=== PATIENT | female | born 1935 | race Caucasian/White ===

== ENCOUNTER 2018-06-20 15:26 | Inpatient (IN) ==
[2018-06-20] MEDS ORDERED: Sod Chloride 0.9% Inj 1,000 ML IV.SIG SCH (16:15)
[2018-06-20] MEDS ORDERED: Morphine Inj 4 MG/ML Vial IV.PUSH ONE (16:15)
--- NOTE | 2018-06-20 16:18 | ED ---
HPI General Chief complaint: Fever Stated complaint: Fever/Blockage Complaint Time Seen by Provider: 06/20/18 16:00 History of Present Illness HPI narrative: This is an 83-year-old female with history of recurrent stage III bilateral ovarian cancer, recently started on gemcitabine, follows with Dr. Melany Alaniz, presents with her for evaluation. For the past 2 days she has had generalized abdominal pain, constipation, feeling weaker than usual , had some shortness of breath and fevers. She notes a slight cough with no sputum production. She denies dysuria or flank pain. She reports decreased appetite. Denies any chest pain, lower extremity edema, vomiting. Symptoms are moderate. She has no other complaints. Related Data Home Medications Medication Instructions Recorded Confirmed metoprolol tartrate mg PO DAILY 06/20/18 rosuvastatin [Crestor] 40 mg PO DAILY 06/20/18 06/20/18 verapamil mg PO DAILY 06/20/18 Allergies Allergy/AdvReac Type Severity Reaction Status Date / Time sulfamethoxazole Allergy Severe swollen Unverified 06/20/18 15:57 tongue trimethoprim Allergy Severe swollen Unverified 06/20/18 15:57 tongue technetium-99m Allergy Intermediate RASH ON Unverified 06/20/18 15:57 TONGUE Review of Systems ROS: all other systems reviewed are negative [facility] Medical History Medical History High cholesterol (Acute) Hypertension (Acute) Ovarian cancer (Acute) Social History Social History Substance History: No History of Abuse Second Hand Smoke Exposure: No Smoking Status: Never smoker How Often Do You Have a Drink Containing Alcohol: Never Recent Travel in [facility] [place] within the Last 8 Weeks: No Recent Out of Country Travel within the Last 8 Weeks: No Exam Narrative Exam Narrative: GENERAL: Well-developed well-nourished female no acute distress. She is noted to be febrile, oxygen saturation 86% on room air. SKIN: Warm and dry. HEAD: Atraumatic. Normocephalic. EYES: Pupils equal and round. No scleral icterus. No injection or drainage. ENT: No nasal bleeding or discharge. Mucous membranes pink and moist. NECK: Trachea midline. No JVD. CARDIOVASCULAR: Regular rate and rhythm. No murmur appreciated. RESPIRATORY: No accessory muscle use. Crackles noted at the bases. Breath sounds equal bilaterally. GASTROINTESTINAL: Abdomen soft, generalized tenderness to palpation without guarding. MUSCULOSKELETAL: No obvious deformities. No clubbing. No cyanosis. No edema. NEUROLOGICAL: Awake and alert. No obvious cranial nerve deficits. Motor grossly within normal limits. Normal speech. PSYCHIATRIC: Appropriate mood and affect; insight and judgment normal. Course Initial Documented Vital Signs Temperature 101 F H 06/20/18 15:55 Pulse Rate 126 H 06/20/18 15:55 Respiratory Rate 22 06/20/18 15:55 Blood Pressure 172/95 H 06/20/18 15:55 Pulse Oximetry 86 L 06/20/18 15:55 Last Documented Vital Signs Temperature 98.3 F 06/20/18 19:43 Pulse Rate 82 06/20/18 19:43 Respiratory Rate 20 06/20/18 19:43 Blood Pressure 138/60 06/20/18 19:43 Pulse Oximetry 94 L 06/20/18 19:49 Medical Decision Making KENN Attestation KENN supervised visit: Yes Attestation: I, Dr. Ramirez, have reviewed the advance practice practitioner's documentation and am in agreement, met with the patient face to face, made the diagnosis, and the medical decision making was done by me. *My assessment and Findings: Patient seen and examined by me in addition to Balaji Mohamud PA-C, 83-year-old female history of ovarian cancer on chemotherapy with Dr. Alaniz presents emergency department with fever tachycardia and constipation is her main symptoms. Septic workup is ensued, patient is significant infiltrate of the right chest. No retractions or use of accessory muscles. And she has had some hypoxia as well. Differential diagnosis does include a lung infarct and a CT PE protocol has been ordered. CT abdomen is well looking for obstruction. Patient has broad-spectrum antibiotics ordered and will obligate admission to the hospital. On my examination patient is mildly tachycardic, she is not concluding a fluid bolus and she is tachypneic. She does appear ill. I have updated the family with the plan at this time and they are agreeable. Patient also had been having some abdominal cramping on and off, she is already received morphine 4 mg and Zofran 4 mg. She is feeling a little better. MDM Narrative Medical decision making narrative: The patient was placed on ECG monitoring pulse oximetry. She was placed on nasal cannula. She was given IV fluids, analgesics. Lab work, chest x-ray, CT pulmonary angiogram, CT abdomen and pelvis obtained. Lab work is been reviewed. She is not neutropenic. CT pulmonary angiogram reveals extensive metastatic disease to the lungs, liver, mediastinum, huge right pleural effusion and right perihilar consolidation and/or compressive collapse. The patient was started on vancomycin, Zosyn and azithromycin for healthcare associated pneumonia. CT abdomen and pelvis reveals evidence of metastatic disease within the serosal margin of the liver, hepatic/sub- diaphragmatic abscess would also be in the differential. Subcentimeter lucencies in the bony pelvis, metastatic deposits in the pelvic region as well. 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 Alaniz. At this point in time the plan is to admit the patient for sepsis, pneumonia, pleural effusion Medical Screen Exam Complete: Yes Emergency Medical Condition: Yes Differential Diagnosis Differential Diagnosis: Sepsis, pneumonia, neutropenic fever, pulmonary embolism , pleural effusion, obstruction Lab Data Result diagrams: 06/20/18 16:29 06/20/18 16:29 Lab Results 06/20/18 06/20/18 06/20/18 Range/Units 16:29 16:29 16:29 WBC 7.1 (4.0-11.0) th/mm3 RBC 3.90 L (4.00-5.30) mil/mm3 Hgb 12.2 (11.6-15.3) gm/dL Hct 36.7 (35.0-46.0) % MCV 93.9 (80.0-100.0) fL MCH 31.3 (27.0-34.0) pg MCHC 33.3 (32.0-36.0) % RDW 13.1 (11.6-17.2) % Plt Count 213 (150-450) th/mm3 MPV 7.7 (7.0-11.0) fL Neut % (Auto) 93.5 H (16.0-70.0) % Lymph % (Auto) 5.1 L (9.0-44.0) % Travis % (Auto) 1.1 (0.0-8.0) % Eos % (Auto) 0.1 (0.0-4.0) % Baso % (Auto) 0.2 (0.0-2.0) % Neut # (Auto) 6.7 (1.8-7.7) th/mm3 Lymph # (Auto) 0.4 L (1.0-4.8) th/mm3 Travis # (Auto) 0.1 (0.0-0.9) th/mm3 Eos # (Auto) 0.0 (0.0-0.4) th/mm3 Baso # (Auto) 0.0 (0.0-0.2) th/mm3 WBC Differential . Differential Comment Auto diff final PT 10.4 (9.8-11.6) sec INR 1.0 Ratio APTT 25.9 (23.4-31.7) sec Sodium (136-145) meq/L Potassium (3.5-5.1) meq/L Chloride (98-107) meq/L Carbon Dioxide (21.0-32.0) meq/L Anion Gap (5-15) meq/L BUN (7-18) mg/dL Creatinine (0.50-1.00) mg/dL Estimated GFR (>89) mL/min POC Glucose (68-110) mg/dl Random Glucose (74-106) mg/dL Lactic Acid (0.4-2.0) mmol/L Calcium (8.5-10.1) mg/dL Magnesium (1.5-2.5) mg/dL Total Bilirubin (0.2-1.0) mg/dL AST (15-37) U/L ALT (10-53) U/L Alkaline Phosphatase (45-117) U/L Total Creatine Kinase Cancelled Troponin I Cancelled Total Protein (6.4-8.2) g/dL Albumin (3.4-5.0) g/dL Lipase Cancelled 06/20/18 06/20/18 06/20/18 Range/Units 16:29 16:31 16:36 WBC (4.0-11.0) th/mm3 RBC (4.00-5.30) mil/mm3 Hgb (11.6-15.3) gm/dL Hct (35.0-46.0) % MCV (80.0-100.0) fL MCH (27.0-34.0) pg MCHC (32.0-36.0) % RDW (11.6-17.2) % Plt Count (150-450) th/mm3 MPV (7.0-11.0) fL Neut % (Auto) (16.0-70.0) % Lymph % (Auto) (9.0-44.0) % Travis % (Auto) (0.0-8.0) % Eos % (Auto) (0.0-4.0) % Baso % (Auto) (0.0-2.0) % Neut # (Auto) (1.8-7.7) th/mm3 Lymph # (Auto) (1.0-4.8) th/mm3 Travis # (Auto) (0.0-0.9) th/mm3 Eos # (Auto) (0.0-0.4) th/mm3 Baso # (Auto) (0.0-0.2) th/mm3 WBC Differential Differential Comment PT (9.8-11.6) sec INR Ratio APTT (23.4-31.7) sec Sodium 138 (136-145) meq/L Potassium 4.2 (3.5-5.1) meq/L Chloride 101 (98-107) meq/L Carbon Dioxide 27.4 (21.0-32.0) meq/L Anion Gap 10 (5-15) meq/L BUN 16 (7-18) mg/dL Creatinine 0.79 (0.50-1.00) mg/dL Estimated GFR 70 L (>89) mL/min POC Glucose 147 H (68-110) mg/dl Random Glucose 130 H (74-106) mg/dL Lactic Acid 1.1 (0.4-2.0) mmol/L Calcium 8.5 (8.5-10.1) mg/dL Magnesium 1.9 (1.5-2.5) mg/dL Total Bilirubin 0.7 (0.2-1.0) mg/dL AST 49 H (15-37) U/L ALT 38 (10-53) U/L Alkaline Phosphatase 54 (45-117) U/L Total Creatine Kinase 36 Troponin I Less than 0.02 L Total Protein 7.5 (6.4-8.2) g/dL Albumin 3.5 (3.4-5.0) g/dL Lipase 164 Imaging Data Radiologist's impression: Abdomen/Pelvis CT 06/20/18 16:12 CONCLUSION: 1. Evidence of metastatic disease within and along the serosal margin of the liver as described. A hepatic/subdiaphragmatic abscess would also be in the differential. 2. Metastatic retroperitoneal and gonzalo hepatis lymphadenopathy. 3. Soft tissue metastatic deposits within the mesentery of the left lower quadrant and the central pelvic cavity. 4. Subcentimeter lucencies of the bony pelvis, probably metastatic. Chest CTA 06/20/18 16:12 CONCLUSION: 1. Possible PE 2. Extensive metastatic disease to the lungs not present previously 3. Metastatic adenopathy within the mediastinum in addition to metastatic implant and/or adenopathy adjacent to right hepatic lobe. 4. Metastatic disease within the liver. 5. Huge right pleural effusion and right perihilar consolidation and/or compressive collapse. Chest X-Ray 06/20/18 16:13 CONCLUSION: Lndl-aj-[id number] generalized interstitial vascular congestion and cardiomegaly Right pleural effusion with underlying airspace disease Qerzuh-g-Uqhp catheter noted in place. Discharge Plan Discharge Disposition Patient Disposition: 30 Still Patient Discharge Condition Condition: Stable Discharge Details Diagnosis: HCAP (healthcare-associated pneumonia), Sepsis, Pleural effusion Physicians Team ED Provider: Ranjit Ramirez ED Midlevel Provider: Balaji Mohamud Primary Care Provider: No Carpio Rxs /Orders / Referrals /Forms Prescriptions: No Action verapamil 40 mg Tablet PO DAILY RF: 0 rosuvastatin [Crestor] 40 mg Tablet 40 mg PO DAILY RF: 0 metoprolol tartrate 25 mg Tablet PO DAILY RF: 0 Status ED Status: With Doctor
[2018-06-20 16:52] LABS: Baso % (Auto) 0.2 % (0.0-2.0); Eos % (Auto) 0.1 % (0.0-4.0); Hematocrit 36.7 % (35.0-46.0); Hemoglobin 12.2 gm/dL (11.6-15.3); Lymph # (Auto) 0.4 th/mm3 (1.0-4.8); Lymph % (Auto) 5.1 % (9.0-44.0); Mean Corpuscular HGB Conc 33.3 % (32.0-36.0); Mean Corpuscular Hemoglobin 31.3 pg (27.0-34.0); Mean Corpuscular Volume 93.9 fL (80.0-100.0); Mean Platelet Volume 7.7 fL (7.0-11.0); Mono # (Auto) 0.1 th/mm3 (0.0-0.9); Mono % (Auto) 1.1 % (0.0-8.0); Neut # (Auto) 6.7 th/mm3 (1.8-7.7); Neut % (Auto) 93.5 % (16.0-70.0); Platelet Count 213 th/mm3 (150-450); Red Cell Distribution Width 13.1 % (11.6-17.2); White Blood Count 7.1 th/mm3 (4.0-11.0)
[2018-06-20 16:59] LABS: Activated Partial Thrombo Time 25.9 sec (23.4-31.7); Prothrombin Time 10.4 sec (9.8-11.6)
--- NOTE | 2018-06-20 16:59 | XR ---
EXAM DATE: 06/20/2018 4:55 PM EST AGE/SEX: 83 years / Female INDICATIONS: Fever and shortness of breath. CLINICAL DATA: This is the patient's initial encounter. Patient reports that signs and symptoms have been present for 1 day and indicates a pain score of 2/10. MEDICAL/SURGICAL HISTORY: Carcinoma, ovarian. Dyslipidemia. HTN. CVA. CAD. Diverticulitis and d iverticulosis. . Infusaport. COMPARISON: [facility], CHEST SINGLE AP, 01/13/2016. . FINDINGS: Diffuse interstitial vascular congestion has developed. There is a small to moderate right pleural ef fusion with underlying airspace disease. Heart is mildly enlarged. Wzixqp-s-Gezx catheter is noted in place. CONCLUSION: Fgex-ol-sffjrxxo generalized interstitial vascular congestion and cardiomegaly Right pleural effusion with underlying airspace disease Crgwez-t-Jiax catheter noted in place. Electronically signed by: Jimbo Madera MD 06/20/2018 4:58 PM EST
[2018-06-20] MEDS ORDERED: Piperacil/Tazo 4.5 GM Premix 4.5 GM/100 ML BAG IV.SIG STA (17:00)
[2018-06-20] MEDS ORDERED: Azithromycin Inj 500 MG in Sodium Chlor 0.9% Inj 250 ML IV.SIG STA (17:00)
[2018-06-20] MEDS ORDERED: Vancomycin Inj 1,000 MG in Sodium Chlor 0.9% Inj 250 ML IV.SIG ONE (17:00)
[2018-06-20] MEDS ORDERED: Acetaminophen 325 MG Tablet PO ONE (17:03)
[2018-06-20 17:13] LABS: Alanine Aminotransferase 38 U/L (10-53); Albumin 3.5 g/dL (3.4-5.0); Anion Gap 10 meq/L (5-15); Aspartate Aminotransferase 49 U/L (15-37); Blood Urea Nitrogen 16 mg/dL (7-18); Calcium 8.5 mg/dL (8.5-10.1); Carbon Dioxide 27.4 meq/L (21.0-32.0); Chloride 101 meq/L (98-107); Glomerular Filtration Rate 70 mL/min (>89); Glucose,Random 130 mg/dL (74-106); Lipase 164 U/L (73-393); Magnesium 1.9 mg/dL (1.5-2.5); Potassium 4.2 meq/L (3.5-5.1); Sodium 138 meq/L (136-145)
[2018-06-20 17:17] LABS: Alkaline Phosphatase 54 U/L (45-117); Total Protein 7.5 g/dL (6.4-8.2)
[2018-06-20 17:19] LABS: Creatine Kinase 36 U/L (26-192)
--- NOTE | 2018-06-20 19:06 | CT ---
EXAM DATE: 06/20/2018 6:43 PM EST AGE/SEX: 83 years / Female INDICATIONS: Abdominal pain and constipation X 3 days. CLINICAL DATA: This is the patient's initial encounter. Patient reports that signs and symptoms have been present for 3 days and indicates a pain score of 8/10. MEDICAL/SURGICAL HISTORY: Hypertension. Carcinoma, ovarian. None. ORAL CONTRAST: No oral contrast ingested. RADIATION DOSE: 8.91 CTDI (mGy) COMPARISON: [facility], CT ABDOMEN AND PELVIS W/ CONTRAST, 04/17/2016. . TECHNIQUE: Multiple contiguous axial images were obtained through the abdomen and pelvis following b olus infusion of 74ML ml Omnipaque 350 (iohexol) nonionic water-soluble contrast as a cumulative do se for multiple exams. No oral contrast ingested. Using automated exposure control and adjustment of the mA and/or kV according to patient size, radiation dose was kept as low as reasonably achievable to obtain optimal diagnostic quality images. DICOM format image data is available electronically for review and comparison. FINDINGS: Multiloculated indurated appearing low-density lesions seen of the dome of the liver, measuring appro ximately 5.8 x 6.9 x 3.4 cm in size. There is fluid in the adjacent subdiaphragmatic space. Slightly more anteriorly is a subdiaphragmatic mass that measures approximately 4 cm in size and actually appe ars to protrude through the diaphragm into the adjacent pericardial fat. A similar mass measuring anjali roximately 1.6 x 3.6 x 5.7 cm is seen along the medial margin of the right hepatic lobe and abuts the adjacent right kidney. There is a 1.4 cm low-density lesion in the anterior segment of the right hep atic lobe on series 304 image 34 which is new. In the left hepatic lobe is a 2.3 cm stable, benign cy st. There is a 4 cm soft tissue mass, probably adilene conglomerate, in the gonzalo hepatis. A left aortocaval lymph node conglomerate measuring approximately 2.8 x 3.3 x 9.1 cm in size is prese nt. There are also some aortocaval lymph nodes that measure up to 1.4 cm in size. There is a soft tissue mass in the central pelvic cavity that measures 2.6 x 4.2 x 3.3 cm. It abuts t he sigmoid colon but does not clearly arise from it. A similar mesenteric mass is seen in the anterio r left lower quadrant on series 304 image 46 measuring 2.5 cm. There is severe diverticulosis of the sigmoid colon but no acute diverticulitis demonstrated. Several scattered vague lucencies are seen of the bony pelvis, for example 9 mm of the right iliac sonal ne and 9 mm of the left super acetabular region. No fracture. Abdominal aorta is atherosclerotic. No aneurysm. CONCLUSION: 1. Evidence of metastatic disease within and along the serosal margin of the liver as described. A h epatic/subdiaphragmatic abscess would also be in the differential. 2. Metastatic retroperitoneal and gonzalo hepatis lymphadenopathy. 3. Soft tissue metastatic deposits within the mesentery of the left lower quadrant and the central p elvic cavity. 4. Subcentimeter lucencies of the bony pelvis, probably metastatic. Electronically signed by: Wilfredo Velez MD 06/20/2018 7:05 PM EST
--- NOTE | 2018-06-20 19:11 | CT ---
EXAM DATE: 06/20/2018 6:43 PM EST AGE/SEX: 83 years / Female INDICATIONS: Shortness of breath; rule out pulmonary embolus. CLINICAL DATA: This is the patient's initial encounter. Patient reports that signs and symptoms have been present for 1 day and indicates a pain score of 8/10. MEDICAL/SURGICAL HISTORY: Hypertension. Carcinoma, ovarian. Chemotherapy None. RADIATION DOSE: 6.49 CTDI (mGy) COMPARISON: [facility], CT CHEST W/ CONTRAST, 04/17/2016. . TECHNIQUE: Volumetric scanning was performed using a multi-row detector CT scanner during bolus infu sawyer of 74 ml Omnipaque 350 (iohexol) nonionic water-soluble contrast as a cumulative dose for multi ple exams. The data was post processed with a variety of visualization algorithms including full volu me maximum intensity projection and sliding thin slab reformation. Using automated exposure control and adjustment of the mA and/or kV according to patient size, radiation dose was kept as low as reaso nably achievable to obtain optimal diagnostic quality images. DICOM format image data is available e lectronically for review and comparison. FINDINGS: There is a large right pleural effusion with right lung base consolidation and/or compressive collaps e. Multiple lung nodules are present to numerous to count the characteristic of metastatic disease th e largest measures almost 9 mm in left lower lobe. There is mass effect on right middle lobe and righ t lower lobe bronchi. There are small lymph nodes within the mediastinum and bilateral aleihsa the large st one measures 2.5 cm in size in right paratracheal area and there is involvement of the AP window p retracheal location as well consistent with metastatic disease not present previously. There is a sub cutaneous nodule near the sternum measures 8 mm in size could be a sebaceous cyst, however not presen t previously and the possibility of metastatic disease is not excluded. Supraclavicular adenopathy i s present the largest one measures 3.3 cm in size characteristic of metastatic disease. Tiny pericard ial effusion is seen probably of no clinical significance. There are low attenuating masses within t he liver suspicious for metastatic disease the largest one measures almost 4.1 cm in size in right he patic lobe. Additionally there are malignant masses or adenopathy indenting the anterior portion of t he liver the largest one measures almost 3.8 cm in size. There is no evidence of PE for technique. CONCLUSION: 1. Possible PE 2. Extensive metastatic disease to the lungs not present previously 3. Metastatic adenopathy within the mediastinum in addition to metastatic implant and/or adenopathy adjacent to right hepatic lobe. 4. Metastatic disease within the liver. 5. Huge right pleural effusion and right perihilar consolidation and/or compressive collapse. Electronically signed by: Norma Trevizo MD 06/20/2018 7:10 PM EST
[2018-06-20] MEDS ORDERED: Vancomycin Consult Pharmacy OTHER PRN (19:53)
[2018-06-20] MEDS ORDERED: Bisacodyl 10 MG Supp RECTAL PRN (19:59)
[2018-06-20] MEDS ORDERED: Acetaminophen 325 MG Tablet PO PRN (19:59)
--- NOTE | 2018-06-20 20:02 | P.HPIM ---
History of Present Illness Primary Care Physician: No Carpio MD History of Present Illness: This is an 83-year-old female with a PMH of HTN, Hyperlipidemia and Stage III Ovarian Ca who was brought to the ER for c/o SOB and abdominal pain. States symptoms have been ongoing for several weeks, however progressively worse since today. Follows w/ Dr. Alaniz, recently started on Gemcitabine. Denies fever or chest pain. +non-productive cough. On arrival, BP 172/95, HR 126, O2 sat 86 % on RA, Temp 101. CBC unremarkable. INR 1.0. Chemistry essentially unremarkable. Troponin negative. UA negative for UTI. CT Abdomen/Pelvis evidence of metastatic disease along the serosal margin of liver, hepatic/ subdiaphragmatic abscess would also be in the differential, soft tissue metastatic deposits in the mesentery of left lower quadrant and central pelvic cavity, subcentimeter lucencies bony pelvis, probably metastatic. CTA Chest no PE, extensive metastatic disease to the lungs, metastatic adenopathy within the mediastinum, metastatic disease to the liver, huge right pleural effusion and right perihilar consolidation and/or compressive collapse. Dr. Alaniz consulted by ER physician. S/p Vanc/Juan Manuelo/Dale in ER. - Diagnosis (1) SIRS (systemic inflammatory response syndrome) (2) Ovarian cancer (3) PNA (pneumonia) (4) Intractable pain (5) Pleural effusion Review of Systems PAST FAMILY HISTORY: Reviewed. No h/o DM or CAD All other systems reviewed negative except as stated in HPI PMFSH - History History Provided By: Patient - Medical History Medical History: Medical History (Last Updated 06/20/18 @ 16:15 by Sheryl Lopez) High cholesterol Hypertension Ovarian cancer - Tobacco History Second Hand Smoke Exposure: No Smoking Status: Never smoker - Alcohol History How Often Do You Have a Drink Containing Alcohol: Never - Substance Use History Substance History: No History of Abuse - Travel History Recent Travel in the [place] Within the Last 8 Weeks: No Recent Travel Out of the Country Within the Last 8 Weeks: No - Immunization History Tetanus Immunization: Unsure Medications and Allergies Active Medications: Active Medications Acetaminophen (Tylenol) 650 mg PO Q4H PRN PRN Reason: Temp > 100.4 Al Hydroxide/Mg Hydroxide (Milk Of Magnesia Liq) 30 ml PO Q12H PRN PRN Reason: Mild Constipation Albuterol (Duoneb Neb (Prn)) 1 ampul NEB Q4HR NEB PRN PRN Reason: SOB/WHEEZING Bisacodyl (Dulcolax Supp) 10 mg RECTAL DAILY PRN PRN Reason: SEVERE CONSITIPATION Enoxaparin Sodium (Lovenox Inj) 40 mg SQ Q24H CHAD Azithromycin 500 mg/ Sodium (Chloride) 250 mls @ 250 mls/hr IV.SIG Q24H CHAD Sodium Chloride (Ns Inj) 1,000 mls @ 100 mls/hr IV.CONT .Q10H CHAD Piperacillin/Tazobactam/Dextrose (Zosyn 4.5 Gm Premix) 4.5 gm in 100 mls @ 200 mls/hr IV.SIG Q6H CHAD Lactulose (Lactulose Liq) 30 ml PO DAILY PRN PRN Reason: SEVERE CONSITIPATION Ondansetron HCl (Zofran Inj) 4 mg IV.PUSH Q6H PRN PRN Reason: NAUSEA OR VOMITING Pharmacy Profile Note (Vancomycin Consult Pharmacy) 1 each OTHER UNSCH PRN PRN Reason: Pharmacy to dose Senna/Docusate Sodium (Susan-Colace) 1 tab PO BID CHAD Sennosides (Senokot) 17.2 mg PO Q12H PRN PRN Reason: Moderate Constipation Allergies Allergy/AdvReac Type Severity Reaction Status Date / Time sulfamethoxazole Allergy Severe swollen Verified 06/20/18 23:06 tongue trimethoprim Allergy Severe swollen Verified 06/20/18 23:06 tongue technetium-99m Allergy Intermediate RASH ON Verified 06/20/18 23:06 TONGUE Home Medications Medication Instructions Recorded Confirmed Type metoprolol tartrate mg PO DAILY 06/20/18 History rosuvastatin [Crestor] 40 mg PO DAILY 06/20/18 06/20/18 History verapamil mg PO DAILY 06/20/18 History Exam Vital signs: Vital Signs 06/20/18 15:55 06/20/18 16:08 06/20/18 19:43 Temperature 101 F H 98.3 F Pulse Rate 126 H 82 Respiratory Rate 22 18 20 Blood Pressure 172/95 H 138/60 Pulse Oximetry 86 L 87 L 97 06/20/18 19:49 Temperature Pulse Rate Respiratory Rate Blood Pressure Pulse Oximetry 94 L Intake & Output 06/20/18 06/20/18 06/21/18 06:59 18:59 06:59 Intake Total 1000 / 1000 Balance 1000 / 1000 Weight 58.967 kg Intake: IV 1000 / 1000 NS Inj 1,000 ML @ 1000 mls/hr 1000 / 1000 IV.SIG BOLUS CHAD Rx#:[id number] Narrative: PE: GENERAL: Elderly white female in no acute distress, appears weak/tired. Family at bedside. SKIN: Focused skin assessment warm and dry. HEENT: PERRLA, EOMI. No scleral icterus or conjunctival pallor. No lid lag or facial droop. CARDIOVASCULAR: Regular rate and rhythm. No obvious murmurs to auscultation. No chest tenderness to palpation. RESPIRATORY: No obvious rhonchi or wheezing. +crackles at bases bilaterally. Decreased breath sounds at bases. GASTROINTESTINAL: Abdomen soft, non-tender, nondistended. BS normal. MUSCULOSKELETAL: Extremities without clubbing, cyanosis, or edema. No obvious deformities. NEUROLOGICAL: Awake, alert and oriented x4. No focal neurologic deficits. Moving both upper and lower extremities spontaneously. PSYCHIATRIC: Appropriate mood and affect. Insight and judgment normal. Results - Labs CBC & Chem 7: 06/20/18 16:29 06/20/18 16:29 Labs: Short CBC 06/20/18 Range/Units 16:29 WBC 7.1 (4.0-11.0) th/mm3 Hgb 12.2 (11.6-15.3) gm/dL Hct 36.7 (35.0-46.0) % Plt Count 213 (150-450) th/mm3 BMP 06/20/18 16:29 Sodium 138 Potassium 4.2 Chloride 101 Carbon Dioxide 27.4 BUN 16 Creatinine 0.79 Calcium 8.5 Cardiac Enzymes 06/20/18 06/20/18 Range/Units 16:29 16:29 Total Creatine Kinase Cancelled 36 Troponin I Cancelled Less than 0.02 L Liver Function 06/20/18 Range/Units 16:29 Total Bilirubin 0.7 (0.2-1.0) mg/dL AST 49 H (15-37) U/L ALT 38 (10-53) U/L Alkaline Phosphatase 54 (45-117) U/L Albumin 3.5 (3.4-5.0) g/dL - Imaging Impressions Abdomen/Pelvis CT 06/20/18 16:12 CONCLUSION: 1. Evidence of metastatic disease within and along the serosal margin of the liver as described. A hepatic/subdiaphragmatic abscess would also be in the differential. 2. Metastatic retroperitoneal and gonzalo hepatis lymphadenopathy. 3. Soft tissue metastatic deposits within the mesentery of the left lower quadrant and the central pelvic cavity. 4. Subcentimeter lucencies of the bony pelvis, probably metastatic. Chest CTA 06/20/18 16:12 CONCLUSION: 1. Possible PE 2. Extensive metastatic disease to the lungs not present previously 3. Metastatic adenopathy within the mediastinum in addition to metastatic implant and/or adenopathy adjacent to right hepatic lobe. 4. Metastatic disease within the liver. 5. Huge right pleural effusion and right perihilar consolidation and/or compressive collapse. Chest X-Ray 06/20/18 16:13 CONCLUSION: [id number] generalized interstitial vascular congestion and cardiomegaly Right pleural effusion with underlying airspace disease Hwxuhm-e-Gwqz catheter noted in place. Caprini VTE Risk Assessment Caprini VTE Risk Assessment: No/Low Risk (score <= 1) Caprini Risk Assessment Model: Point Value = 1 Point Value = 2 Point Value = 3 Point Value = 5 Age 41-60 Minor surgery BMI > 25 kg/m2 Swollen legs Varicose veins or History of unexplained or recurrent spontaneous Oral contraceptives or hormone replacement Sepsis (< 1 month) Serious lung disease, including pneumonia (< 1 month) Abnormal pulmonary function Acute myocardial infarction Congestive heart failure (< 1 month) History of inflammatory bowel disease Medical patient at bed rest Age 61-74 Arthroscopic surgery Major open surgery (> 45 min) Laparoscopic surgery (> 45 min) Malignancy Confined to bed (> 72 hours) Immobilizing plaster cast Central venous access Age >= 75 History of VTE Family history of VTE Factor V Leiden Prothrombin 14318H Lupus anticoagulant Anticardiolipin antibodies Elevated serum homocysteine Heparin-induced thrombocytopenia Other congenital or acquired thrombophilia Stroke (< 1 month) Elective arthroplasty Hip, pelvis, or leg fracture Acute spinal cord injury (< 1 month) Prophylaxis Regimen: Total Risk Factor Score Risk Level Prophylaxis Regimen 0-1 Low Early ambulation 2 Moderate Order ONE of the following: *Sequential Compression Device (SCD) *Heparin 5000 units SQ BID 3-4 Higher Order ONE of the following medications: *Heparin 5000 units SQ TID *Enoxaparin/Lovenox 40 mg SQ daily (WT < 150 kg, CrCl > 30 mL/min) *Enoxaparin/Lovenox 30 mg SQ daily (WT < 150 kg, CrCl > 10-29 mL/min) *Enoxaparin/Lovenox 30 mg SQ BID (WT < 150 kg, CrCl > 30 mL/min) AND/OR *Sequential Compression Device (SCD) 5 or more Highest Order ONE of the following medications: *Heparin 5000 units SQ TID (Preferred with Epidurals) *Enoxaparin/Lovenox 40 mg SQ daily (WT < 150 kg, CrCl > 30 mL/min) *Enoxaparin/Lovenox 30 mg SQ daily (WT < 150 kg, CrCl > 10-29 mL/min) *Enoxaparin/Lovenox 30 mg SQ BID (WT < 150 kg, CrCl > 30 mL/min) AND *Sequential Compression Device (SCD) Assessment and Plan - Assessment (1) SIRS (systemic inflammatory response syndrome) Code(s): R65.10 - Systemic inflammatory response syndrome (SIRS) of non- infectious origin without acute organ dysfunction Status: Acute (2) Ovarian cancer Code(s): C56.9 - Malignant neoplasm of unspecified ovary Status: Acute (3) PNA (pneumonia) Code(s): J18.9 - Pneumonia, unspecified organism Status: Acute (4) Intractable pain Code(s): R52 - Pain, unspecified Status: Acute (5) Pleural effusion Code(s): J90 - Pleural effusion, not elsewhere classified Status: Acute - Plan A/P: 1. SIRS: Temp 101, HR 126, Source-PNA, S/p blood cultures, follow up cultures , continue IV Abx, IVF-caution w/ fluid overload. 2. PNA: CTA Chest w/ NO PE, but right hilar consolidation w/ likely compressive atelectasis, images reviewed. S/p Vanc/Zosyn/Zithro in ER, will continue w/ IV Abx, follow up cultures, DuoNeb prn. 3. Pleural Effusion: Right. CTA Chest w/ huge right pleural effusion, images reviewed. Lasix IV, monitor I/O-caution w/ IVF for Sepsis, repeat CXR in am, Consult IR for thoracentesis, send fluid for culture/cytology, monitor O2. 4. Ovarian CA: Metastatic. Follows w/ Dr. Alaniz, recently started on Gemcitabine, CT Abd/Pelvis and CTA Chest w/ progressive metastatic disease not previously seen. Dr. Alaniz consulted by ER physician, findings apparently known, no changes from [facility] perspective. 5. Intractable Pain: c/o abdominal pain, likely due to progression of ovarian ca, Morphine prn as needed 6. DVT Prophylaxis: SCD/Teds 7. Social work for d/c planning as needed 8. Case discussed w/ ER physician at length, labs/records/imaging reviewed by me.
[2018-06-20] MEDS: Sod Chloride 0.9% Inj 1,000 ML IV.CONT SCH (21:38)
[2018-06-20] MEDS: Senna/Docusate Sodium 8.6/50 MG Tablet PO SCH (21:38)
--- NOTE | 2018-06-20 21:49 | ECG ---
Date Performed: 06/20/2018 Time Performed: 16:27:01 PTAGE: 83 years EKG: SINUS TACHYCARDIA RIGHT BUNDLE BRANCH BLOCK LEFT ANTERIOR FASCICULAR BLOCK POSSIBLE ANTERI OR MYOCARDIAL INFARCTION ABNORMAL ECG Compared to prior electrocardiogram, rate has increased . PREVIOUS TRACING : 04/20/2016 11.22 DOCTOR: Rogelio Collazo Interpretating Date/Time 06/20/2018 21:48:31
[2018-06-20 23:05] LABS: Bilirubin,Urine Negative (Negative); Clarity,Urine Clear (Clear); Color,Urine Straw (Yellw/Straw); Glucose,Urine (UA) Negative (Negative); Hyaline Casts,Urine 1 /lpf (0-3); Leukocyte Esterase,Urine Negative (Negative); Mucus,Urine Few /lpf (Occasional); Nitrite,Urine Negative (Negative); Specific Gravity,Urine 1.026 (1.002-1.035); Squamous Epithelial Cell,Urine <1 /hpf (0-5)
[2018-06-21] MEDS: Piperacil/Tazo 4.5 GM Premix 4.5 GM/100 ML BAG IV.SIG SCH ×4 (02:38→20:01)
[2018-06-21 04:58] LABS: Baso % (Auto) 0.5 % (0.0-2.0); Eos # (Auto) 0.1 th/mm3 (0.0-0.4); Eos % (Auto) 1.4 % (0.0-4.0); Hematocrit 29.1 % (35.0-46.0); Hemoglobin 9.9 gm/dL (11.6-15.3); Lymph # (Auto) 0.6 th/mm3 (1.0-4.8); Lymph % (Auto) 12.3 % (9.0-44.0); Mean Corpuscular HGB Conc 33.9 % (32.0-36.0); Mean Corpuscular Hemoglobin 31.2 pg (27.0-34.0); Mean Corpuscular Volume 92.1 fL (80.0-100.0); Mean Platelet Volume 7.4 fL (7.0-11.0); Mono # (Auto) 0.1 th/mm3 (0.0-0.9); Mono % (Auto) 1.2 % (0.0-8.0); Neut # (Auto) 4.4 th/mm3 (1.8-7.7); Neut % (Auto) 84.6 % (16.0-70.0); Platelet Count 180 th/mm3 (150-450); Red Blood Count 3.16 mil/mm3 (4.00-5.30); Red Cell Distribution Width 13.6 % (11.6-17.2); White Blood Count 5.2 th/mm3 (4.0-11.0)
[2018-06-21 05:20] LABS: Albumin 2.9 g/dL (3.4-5.0); Calcium 7.4 mg/dL (8.5-10.1); Carbon Dioxide 29.9 meq/L (21.0-32.0); Potassium 3.5 meq/L (3.5-5.1)
[2018-06-21 05:23] LABS: Total Protein 6.4 g/dL (6.4-8.2)
--- NOTE | 2018-06-21 09:15 | XR ---
EXAM DATE: 06/21/2018 9:11 AM EST AGE/SEX: 83 years / Female INDICATIONS: Shortness of breath. Pleural effusion. CLINICAL DATA: This is the patient's subsequent encounter. Patient reports that signs and symptoms h ave been present for 2 days and indicates a pain score of 0/10. MEDICAL/SURGICAL HISTORY: . Carcinoma, ovarian. Dyslipidemia. HTN. CVA. CAD. Diverticulitis and diverticulosis. . Infusaport. COMPARISON: [facility], CTA PULMONARY W CONTRAST W 3D, 06/20/2018. . FINDINGS: There is diffuse interstitial prominence. There is dense consolidation of the right lower lobe and a pleural effusion. A right-sided portacatheter is present, tip overlies the expected location of the S VC/right atrial junction. There are degenerative changes of the spine noted. The lung nodules identif ied on the recent CT are faintly visualized.. CONCLUSION: Dense right lower lobe consolidation and right effusion. Electronically signed by: Blas Lloyd MD 06/21/2018 9:13 AM EST
[2018-06-21] MEDS: Enoxaparin Inj 40 MG/0.4 ML Syringe SQ SCH (10:12)
[2018-06-21] MEDS: Senna/Docusate Sodium 8.6/50 MG Tablet PO SCH ×2 (10:20→21:41)
--- NOTE | 2018-06-21 12:10 | P.PN ---
Subjective Interval history: Follow-up on sepsis. Nursing denies any acute deteriorations overnight. Patient herself says she still has relatively unchanged shortness of breath since yesterday. Physical Exam Vital signs: Vital Signs 06/20/18 15:55 06/20/18 16:08 06/20/18 19:43 Temperature 101 F H 98.3 F Pulse Rate 126 H 82 Respiratory Rate 22 18 20 Blood Pressure 172/95 H 138/60 Pulse Oximetry 86 L 87 L 97 06/20/18 19:49 06/20/18 21:40 06/20/18 22:50 Temperature Pulse Rate 80 74 Respiratory Rate 17 Blood Pressure 120/56 L Pulse Oximetry 94 L 06/20/18 23:30 06/20/18 23:34 06/21/18 00:00 Temperature 98.4 F Pulse Rate 73 73 Respiratory Rate 20 Blood Pressure 125/63 Pulse Oximetry 94 L 94 L 06/21/18 04:00 06/21/18 07:15 06/21/18 07:17 Temperature 98.1 F 98.6 F Pulse Rate 77 75 Respiratory Rate 16 20 Blood Pressure 120/63 123/63 Pulse Oximetry 95 93 L 93 L Intake & Output 06/20/18 06/21/18 06/21/18 18:59 06:59 18:59 Intake Total 1250 / 1250 670 / 670 Output Total 700 / 700 Balance 1250 / 1250 -30 / -30 Weight 58.967 kg 60.6 kg Intake: IV 1250 / 1250 450 / 450 Azithromycin Inj 500 MG In NS 250 / 250 Inj 250 ML @ 250 mls/hr IV.SIG STAT STA Rx#:[id number] Zosyn 4.5 GM Premix 4.5 gm In 200 / 200 100 ml @ 200 mls/hr IV.SIG Q6H CHAD Rx#:[id number] NS Inj 1,000 ML @ 1000 mls/hr 1000 / 1000 IV.SIG BOLUS CHAD Rx#:[id number] Oral 220 / 220 Output: Urine 700 / 700 Other: Date of Last Bowel Movement 06/18/18 Weight On Admission 60.6 kg Narrative: Sitting up in a reclining position in bed Nasal cannula in nose Does not appear to be in respiratory distress Has significantly diminished breath sounds on the right, good breath sounds on the left Heart sounds regular rate and rhythm No lower extremity edema Results - Labs CBC & Chem 7: 06/21/18 04:46 06/21/18 04:46 Laboratory Results - last 24 hr 06/20/18 06/20/18 06/20/18 16:29 16:29 16:29 WBC 7.1 RBC 3.90 L Hgb 12.2 Hct 36.7 MCV 93.9 MCH 31.3 MCHC 33.3 RDW 13.1 Plt Count 213 MPV 7.7 Neut % (Auto) 93.5 H Lymph % (Auto) 5.1 L Preston % (Auto) 1.1 Eos % (Auto) 0.1 Baso % (Auto) 0.2 Neut # (Auto) 6.7 Lymph # (Auto) 0.4 L Preston # (Auto) 0.1 Eos # (Auto) 0.0 Baso # (Auto) 0.0 WBC Differential . Differential Comment Auto diff final PT 10.4 INR 1.0 APTT 25.9 Sodium Potassium Chloride Carbon Dioxide Anion Gap BUN Creatinine Estimated GFR POC Glucose Random Glucose Lactic Acid Calcium Prot Corrected Calcium Magnesium Total Bilirubin AST ALT Alkaline Phosphatase Total Creatine Kinase Cancelled Troponin I Cancelled Total Protein Albumin Lipase Cancelled Urine Color Urine Clarity Urine pH Ur Specific [place] Urine Protein Urine Glucose (UA) Urine Ketones Urine Occult Blood Urine Nitrate Urine Bilirubin Urine Urobilinogen Ur Leukocyte Esterase Urine RBC Urine WBC Ur Squamous Epith Cells Hyaline Casts Urine Mucus Micro UA Comment Ur Microscopic Review Urine Culture Comments 06/20/18 06/20/18 06/20/18 16:29 16:31 16:36 WBC RBC Hgb Hct MCV MCH MCHC RDW Plt Count MPV Neut % (Auto) Lymph % (Auto) Preston % (Auto) Eos % (Auto) Baso % (Auto) Neut # (Auto) Lymph # (Auto) Preston # (Auto) Eos # (Auto) Baso # (Auto) WBC Differential Differential Comment PT INR APTT Sodium 138 Potassium 4.2 Chloride 101 Carbon Dioxide 27.4 Anion Gap 10 BUN 16 Creatinine 0.79 Estimated GFR 70 L POC Glucose 147 H Random Glucose 130 H Lactic Acid 1.1 Calcium 8.5 Prot Corrected Calcium Magnesium 1.9 Total Bilirubin 0.7 AST 49 H ALT 38 Alkaline Phosphatase 54 Total Creatine Kinase 36 Troponin I Less than 0.02 L Total Protein 7.5 Albumin 3.5 Lipase 164 Urine Color Urine Clarity Urine pH Ur Specific [place] Urine Protein Urine Glucose (UA) Urine Ketones Urine Occult Blood Urine Nitrate Urine Bilirubin Urine Urobilinogen Ur Leukocyte Esterase Urine RBC Urine WBC Ur Squamous Epith Cells Hyaline Casts Urine Mucus Micro UA Comment Ur Microscopic Review Urine Culture Comments 06/20/18 06/21/18 06/21/18 22:40 04:46 04:46 WBC 5.2 RBC 3.16 L Hgb 9.9 L D Hct 29.1 L MCV 92.1 MCH 31.2 MCHC 33.9 RDW 13.6 Plt Count 180 MPV 7.4 Neut % (Auto) 84.6 H Lymph % (Auto) 12.3 Preston % (Auto) 1.2 Eos % (Auto) 1.4 Baso % (Auto) 0.5 Neut # (Auto) 4.4 Lymph # (Auto) 0.6 L Preston # (Auto) 0.1 Eos # (Auto) 0.1 Baso # (Auto) 0.0 WBC Differential . Differential Comment Auto diff final PT INR APTT Sodium 139 Potassium 3.5 Chloride 102 Carbon Dioxide 29.9 Anion Gap 7 BUN 12 Creatinine 0.79 Estimated GFR 70 L POC Glucose Random Glucose 96 Lactic Acid Calcium 7.4 L* D Prot Corrected Calcium 7.8 L Magnesium Total Bilirubin 0.8 AST 31 ALT 30 Alkaline Phosphatase 45 Total Creatine Kinase Troponin I Total Protein 6.4 D Albumin 2.9 L D Lipase Urine Color Straw Urine Clarity Clear Urine pH 5.0 Ur Specific [place] 1.026 Urine Protein Negative Urine Glucose (UA) Negative Urine Ketones Trace H Urine Occult Blood Negative Urine Nitrate Negative Urine Bilirubin Negative Urine Urobilinogen Less than 2 Ur Leukocyte Esterase Negative Urine RBC 1 Urine WBC 3 Ur Squamous Epith Cells <1 Hyaline Casts 1 Urine Mucus Few H Micro UA Comment Culture not ind Ur Microscopic Review Not Reportable Urine Culture Comments Culture not ind 06/21/18 07:19 WBC RBC Hgb Hct MCV MCH MCHC RDW Plt Count MPV Neut % (Auto) Lymph % (Auto) Preston % (Auto) Eos % (Auto) Baso % (Auto) Neut # (Auto) Lymph # (Auto) Preston # (Auto) Eos # (Auto) Baso # (Auto) WBC Differential Differential Comment PT INR APTT Sodium Potassium Chloride Carbon Dioxide Anion Gap BUN Creatinine Estimated GFR POC Glucose 81 Random Glucose Lactic Acid Calcium Prot Corrected Calcium Magnesium Total Bilirubin AST ALT Alkaline Phosphatase Total Creatine Kinase Troponin I Total Protein Albumin Lipase Urine Color Urine Clarity Urine pH Ur Specific [place] Urine Protein Urine Glucose (UA) Urine Ketones Urine Occult Blood Urine Nitrate Urine Bilirubin Urine Urobilinogen Ur Leukocyte Esterase Urine RBC Urine WBC Ur Squamous Epith Cells Hyaline Casts Urine Mucus Micro UA Comment Ur Microscopic Review Urine Culture Comments Microbiology 06/20/18 16:30 Blood - Peripheral Aerobic Blood Culture - Preliminary No growth in 1 day 06/20/18 16:30 Blood - Peripheral Anaerobic Blood Culture - Preliminary No growth in 1 day 06/20/18 16:35 Blood - Peripheral Aerobic Blood Culture - Preliminary No growth in 1 day 06/20/18 16:35 Blood - Peripheral Anaerobic Blood Culture - Preliminary No growth in 1 day 06/20/18 16:55 Nasal Wash Influenza Types A,B Antigen - Final Negative for FLU A and B antigen Infection due to influenza A or B cannot be ruled out since the antigen present in the sample may be below the detection limit of the test. - Imaging Impressions Abdomen/Pelvis CT 06/20/18 16:12 CONCLUSION: 1. Evidence of metastatic disease within and along the serosal margin of the liver as described. A hepatic/subdiaphragmatic abscess would also be in the differential. 2. Metastatic retroperitoneal and gonzalo hepatis lymphadenopathy. 3. Soft tissue metastatic deposits within the mesentery of the left lower quadrant and the central pelvic cavity. 4. Subcentimeter lucencies of the bony pelvis, probably metastatic. Chest CTA 06/20/18 16:12 CONCLUSION: 1. Possible PE 2. Extensive metastatic disease to the lungs not present previously 3. Metastatic adenopathy within the mediastinum in addition to metastatic implant and/or adenopathy adjacent to right hepatic lobe. 4. Metastatic disease within the liver. 5. Huge right pleural effusion and right perihilar consolidation and/or compressive collapse. Chest X-Ray 06/20/18 16:13 CONCLUSION: [id number] generalized interstitial vascular congestion and cardiomegaly Right pleural effusion with underlying airspace disease Ecnrch-w-Ovtu catheter noted in place. Chest X-Ray 06/21/18 09:00 CONCLUSION: Dense right lower lobe consolidation and right effusion. Assessment and Plan - Assessment (1) SIRS (systemic inflammatory response syndrome) Code(s): R65.10 - Systemic inflammatory response syndrome (SIRS) of non- infectious origin without acute organ dysfunction Status: Acute (2) Ovarian cancer Code(s): C56.9 - Malignant neoplasm of unspecified ovary Status: Acute (3) PNA (pneumonia) Code(s): J18.9 - Pneumonia, unspecified organism Status: Acute (4) Intractable pain Code(s): R52 - Pain, unspecified Status: Acute (5) Pleural effusion Code(s): J90 - Pleural effusion, not elsewhere classified Status: Acute - Plan 83-year-old white female admitted for sepsis likely secondary to pneumonia. Possible right lung collapse with significant right-sided pleural effusion, actively being treated for ovarian cancer with chemotherapy by Dr. Alaniz. Has known metastatic disease in the abdomen and chest. Sepsis Likely secondary to pneumonia, continue IV fluids and antibiotics as below, blood cultures pending -urine culture, pleural cultures once collected Shortness of breath Pneumonia Pleural effusion Possibly secondary to pneumonia and/or cancer Continue Zosyn and azithromycin consulting pulmonology, d/w Dr. Mcdaniel, likely will inform radiology to proceed w/ pigtail chest tube -Supplemental oxygen and duo nebs, culture of pleural fluids Ovarian CA: Metastatic. Follows w/ Dr. Alaniz, recently started on Gemcitabine , CT Abd/Pelvis and CTA Chest w/ progressive metastatic disease not previously seen. Dr. Alaniz consulted by ER physician, findings apparently known, no changes from [facility] perspective. Intractable Pain: c/o abdominal pain, likely due to progression of ovarian ca, Morphine prn as needed To return to pharmacological anti-coagulation once procedure agenda is addressed and completed
--- NOTE | 2018-06-21 15:11 | XR ---
EXAM DATE: 06/21/2018 2:56 PM EST AGE/SEX: 83 years / Female INDICATIONS: Shortness of breath CLINICAL DATA: This is the patient's initial encounter. Patient reports that signs and symptoms have been present for 1 day and indicates a pain score of 1/10. MEDICAL/SURGICAL HISTORY: . Post right thoracentesis. . Post right thoracentesis. [place] [facility] [place]. . FINDINGS: Decreased right pleural effusion after thoracentesis, now minimal. Patchy basilar predominant parench ymal consolidation of both lungs again noted, improved on the right and not significantly changed on the left. No pneumothorax. Mild cardiomegaly is stable. Tortuous and atherosclerotic aorta again seen. CONCLUSION: 1. Near complete resolution of right pleural effusion postthoracentesis. No pneumothorax. 2. Patchy parenchymal consolidation of both lungs, improved on the right and not significantly pak ed on the left. Electronically signed by: Wilfredo Velez MD 06/21/2018 3:09 PM EST
[2018-06-21] MEDS: Sod Chloride 0.9% Inj 1,000 ML IV.CONT SCH ×2 (16:40→17:44)
[2018-06-21 17:28] LABS: Total Protein,Pleural Fluid 4.6 gm/dL
[2018-06-21 17:49] LABS: Lymphocytes,Pleural Fluid 42 %; Neutrophils,Pleural Fluid 54 %; RBC,Pleural Fluid 5377 /mm3 (0-0)
[2018-06-21 17:50] LABS: Mesothelial,Pleural Fluid 3 %
[2018-06-21] MEDS: Vancomycin Inj 1,000 MG in Sodium Chlor 0.9% Inj 250 ML IV.SIG SCH (18:33)
--- NOTE | 2018-06-21 20:00 | MB ---
cc: Melany Alaniz MD,Kylee Carpio,Annia Ramos MD, MD,Jacob Vega,Marlene Gilmore MD DATE: 06/21/2018 PHYSICIAN REQUESTING CONSULT: Jacob Decker MD and Kylee Madison MD REASON FOR CONSULTATION: Febrile illness, active treatment for ovarian cancer. HISTORY OF PRESENT ILLNESS: An 83-year-old female with recurrent stage IIIC ovarian cancer who is currently on line for single agent gemcitabine chemotherapy. She was recently just started on her first infusion of gemcitabine with 20% dose reduction on Saturday of this week, 06/18/2018. She tolerated that well without any immediate effects. However, over the last 24 hours, she began to feel more and more fatigued. She felt short of breath, felt febrile, took her temperature at home, was elevated greater than 101 degrees. She contacted our office and spoke with our nurse practitioner and she was advised to present to the emergency room. She presented to the emergency room. She was found to have labored respirations, hypoxic and febrile with a temperature of 101. Objective findings at that time also included chest imaging that showed a large pleural effusion and infiltrate in the right lung. Imaging included a CTA of the chest, which was indeterminate for pulmonary emboli, whereas no obvious pulmonary emboli was detected due to the large pleural effusion, atelectasis and infiltration. Question was raised regarding possibility of an occult pulmonary emboli, but no obvious thrombus seen. Also noted on chest imaging as well as abdomen and pelvis was multifocal metastatic disease with pulmonary nodules, mediastinal adenopathy, tumor implants along the liver, as well as parenchymal hepatic metastases. There were also multifocal retroperitoneal lymph nodes and peritoneal changes all suggestive of metastatic disease. There are also a couple of sclerotic lesions noted in the pelvic bones that were suspicious for metastatic disease. She is admitted now for further evaluation and management regarding these findings. PAST MEDICAL HISTORY: Notable for ovarian cancer as above. She has had elevated cholesterol, hypertension. ALLERGIES: LISTED IN THE CHART. SOCIAL HISTORY: She is and has a very supportive family. Family are present at the bedside at the time of interaction with her. Her previous chemotherapy first line included Taxol and carboplatin chemotherapy. Second line chemotherapy was with, I believe, liposomal doxorubicin. Third line therapy was with an oral PARP inhibitor (Zejula) and now just recently started on single-agent gemcitabine. Additional ins and outs 1920/1700. LABORATORY DATA: Most recently show a white count of 5.2, H and H 9.9 and 29.1, platelet count 180. INR 1.0. Electrolytes, corrected calcium low at 7.8, albumin low at 2.9, potassium 3.5, BUN and creatinine 12 and 0.79. Blood cultures are preliminary no growth thus far less than 24 hours. PHYSICAL EXAMINATION: VITAL SIGNS: She is currently afebrile. Her maximum temperature was 101, pulse ranging currently 78-88, respirations 16-20, blood pressure 123-139/63-69, O2 saturations greater than or equal to 93% on 4 liters. GENERAL: She is alert and oriented x3. Her respirations are mildly labored. She reports feeling better as she is status post thoracentesis. LUNGS: Clear to apices. There are rales at the bases and dullness at the bases, although fairly equilibrated. The bandage from the recent thoracentesis is intact and is dry. CARDIOVASCULAR: Rapid regular rate and rhythm. ABDOMEN: Slightly distended, but nontender. No rebound or guarding, nonacute. BACK: No CVA tenderness or spinal point tenderness. SKIN: Warm and dry. Mucous membranes are slightly pale. EXTREMITIES: Nontender. No focal mass. No palpable cords. Time was spent in discussion with her and her family, reviewing the findings and her case today. At this time, she is feeling poorly. It is good that she presented to the hospital with febrile illness. She has been started on broad-spectrum antibiotics. Cultures pending. The working premise is probable pneumonia and concern about possible sepsis. The pleural effusion was certainly contributing at least in part to her respiratory compromise and this is improved status post thoracentesis. She has questions regarding the ongoing oncology care. We have had a series of detailed discussions in the office as of recent and she has recently decided in favor of gemcitabine chemotherapy, although she struggles with that decision. Right now, she is feeling poorly and I encouraged her not to make any definitive decision as she is uncertain if she wishes to continue chemotherapy because she is feeling so poorly at this time. I encouraged her to get through the reversible troubles to treat the pneumonia, treat the infection. It is hoped that the chemotherapy will help the underlying illness, which has been contributing in part as well to her symptomatology such that hopefully treatment will improve her overall status. Questions were asked and answered by her and her family. They were grateful for the care provided and grateful for the time spent and I expressed my gratitude for the excellent medical care being provided by our hospitalist service and their colleagues. ASSESSMENT: 1. Recurrent stage IIIC ovarian cancer. 2. Recent initiation of line 4 single-agent gemcitabine chemotherapy. 3. Admitted with febrile illness, shortness of breath, failure to thrive. 4. Status post thoracentesis with improvement in respiration. 5. Initiation of broad-spectrum antibiotics. Culture results pending and ongoing supportive care. PLAN: Agree with hospital admission and excellent medical care. She understands it is likely she would require hospitalization and IV fluids until cultures are proven negative and until her oxygenation and her overall performance status reaches some stable capacity for discharge to home. With respect to Oncology, there are no new recommendations from an oncology standpoint as the recurrent disease and metastatic nature of it is known. It is further outlined with recent CAT scan imaging. She was just started on single-agent gemcitabine, so it is too early to tell whether or not this will provide significant response to treatment and she is encouraged to stay on treatment to complete at least two complete infusion cycles to assess tolerance and response. Thank you for the consultation. I will follow along in her care. Melany Alaniz MD KLM/sv , 05:55 PM , 06:10 PM
--- NOTE | 2018-06-21 20:45 | MB ---
cc: Merced Elliott MD DATE: 06/21/2018 REASON FOR CONSULTATION: Pleural effusion. HISTORY OF PRESENT ILLNESS: This is an 83-year-old white female who has had a past history of hypertension, hyperlipidemia, history of ovarian cancer, stage III, has been brought to the hospital for difficulty breathing and abdominal discomfort. The patient has been under chemotherapy by Dr. Gtz for diagnosis of ovarian cancer and previously has had ascites drained. She had no fevers. No hemoptysis. She had an occasional cough and had some chest discomfort. Upon arrival in the ER, she was sent for a CT of the abdomen and pelvis, which showed evidence of metastatic disease along the serosal margin of the liver and subdiaphragmatic fluid collection and soft tissue metastatic deposits centrally in the left lower quadrant and central pelvic cavity, also lucencies in the bony pelvis. There was no evidence of pulmonary emboli seen on CTA of the chest, but extensive pulmonary metastasis were noted as well as adenopathy in the mediastinal area. A right pleural effusion, which shows moderately large with compressive atelectasis in the right lower lobe. The patient then was sent for an ultrasound-guided thoracentesis, which was performed this afternoon with the removal of 1 liter of serosanguineous fluid. The patient is breathing easier. She is on oxygen at 2 liters. She is able to lie flat. She has some cough still and denies any fevers or chills. PAST MEDICAL HISTORY: Includes a history of stage III ovarian cancer and history of pleural hypertension and hyperlipidemia. No history of diabetes. HABITS: The patient does not smoke. No significant alcohol use. FAMILY HISTORY: Essentially noncontributory. MEDICATIONS: List included: 1. Azithromycin 500 mg daily. 2. Lovenox 40 mg subcutaneous daily. 3. Zosyn 4.5 grams IV every 6 hours and Zofran injection p.r.n. 4 mg. ALLERGIES: SULFA AND METHIMAZOLE AND TECHNETIUM. HOME MEDICATIONS: 1. Metoprolol 50 mg daily. 2. Crestor 40 mg a day. 3. Verapamil 240 mg. FAMILY HISTORY: Noncontributory. REVIEW OF SYSTEMS: Reveals the patient has had some weight loss. She has chest tightness and wheezing and denies any urinary symptoms, but has some abdominal pains, discomfort, bloating and cramping. No leg swelling or calf muscle pains. She has no significant depression or anxiety. PHYSICAL EXAMINATION: GENERAL: This is an averagely built elderly white female who is alert, no acute distress, slightly pale. There is no lymphadenopathy or peripheral edema. VITAL SIGNS: Blood pressure was 140/70, pulse is 85, respirations 20, temperature 98.6. HEENT: Head is normocephalic. Pupils were reactive and equal. Tongue is moist. Throat is clear. Nasal mucosa is edematous. NECK: Supple, no bruits or thyroid enlargement or lymphadenopathy. CHEST: Equal movements with dullness at the right base with occasional wheezes bilaterally, prolonged expirations. HEART: The heart sounds are irregular, S1 and S2 with no murmur. No S3. ABDOMEN: Protuberant with mild epigastric tenderness. Liver is just felt below the costal margin. The bowel sounds were faint. EXTREMITIES: Minimal edema with decreased peripheral pulses. No calf tenderness or swelling. Reflexes are 1+ with no gross motor deficits. Cranial nerves grossly intact. SKIN: Scaly and dry. IMPRESSION: 1. Right pleural effusion, probable malignant effusion. 2. History of ovarian cancer, on chemotherapy. 3. Probable right basilar pneumonia. 4. Possible sepsis. PLAN: The patient has been started on broad-spectrum antibiotic coverage, which we will continue. Pleural effusion was drained and that will be sent for cultures, cytology and studies including glucose, protein, LDH. The patient will have a followup chest x-ray done. We will also use nebulized albuterol solution q.i.d. p.r.n., oxygen nasal cannula 2 liters p.r.n. Incentive spirometry every 2 hours at the bedside and will review the followup chest x-ray. If the pleural fluid recurs rapidly, we may have to do further intervention including a PleurX catheter for repeat drainage. Thank you Dr. Madison for this consultation. Merced Elliott MD VJD/ct , 07:39 PM , 07:53 PM
[2018-06-21] MEDS: Azithromycin Inj 500 MG in Sodium Chlor 0.9% Inj 250 ML IV.SIG SCH (21:42)
[2018-06-22] MEDS: Piperacil/Tazo 4.5 GM Premix 4.5 GM/100 ML BAG IV.SIG SCH ×4 (02:19→20:32)
[2018-06-22] MEDS: Sod Chloride 0.9% Inj 1,000 ML IV.CONT SCH (02:28)
[2018-06-22] MEDS: Enoxaparin Inj 40 MG/0.4 ML Syringe SQ SCH (08:36)
[2018-06-22] MEDS: Senna/Docusate Sodium 8.6/50 MG Tablet PO SCH ×2 (08:37→21:41)
--- NOTE | 2018-06-22 10:44 | P.PN ---
Subjective Interval history: Nursing denies any acute changes overnight. Patient expresses her frustration with not having a pinpoint prognosis. Says she does not want to "prolong suffering" Physical Exam Vital signs: Vital Signs 06/21/18 11:00 06/21/18 12:58 06/21/18 16:51 Temperature 98.4 F 98 F Pulse Rate 78 87 88 Respiratory Rate 20 20 Blood Pressure 123/63 139/69 Pulse Oximetry 93 L 93 L 06/21/18 17:05 06/21/18 18:32 06/21/18 19:00 Temperature 99.4 F Pulse Rate 90 Respiratory Rate Blood Pressure Pulse Oximetry 93 L 06/21/18 20:00 06/21/18 23:00 06/22/18 00:00 Temperature 99.4 F 99 F Pulse Rate 89 86 85 Respiratory Rate 16 16 Blood Pressure 122/63 122/57 L Pulse Oximetry 99 94 L 06/22/18 03:00 06/22/18 03:51 06/22/18 09:20 Temperature 99 F Pulse Rate 81 79 Respiratory Rate 16 Blood Pressure 124/65 Pulse Oximetry 94 L 97 Intake & Output 06/21/18 06/22/18 06/22/18 18:59 06:59 18:59 Intake Total 1680 / 1680 940 / 940 Output Total 600 / 600 100 / 100 Balance 1080 / 1080 840 / 840 Weight 59.4 kg Intake: IV 1200 / 1200 700 / 700 NS Inj 1,000 ML @ 100 mls/hr IV 1000 / 1000 .CONT .Q10H [facility] Rx#:[id number] Azithromycin Inj 500 MG In NS 250 / 250 Inj 250 ML @ 250 mls/hr IV.SIG Q24H [facility] Rx#:[id number] Zosyn 4.5 GM Premix 4.5 gm In 200 / 200 200 / 200 100 ml @ 200 mls/hr IV.SIG Q6H [facility] Rx#:[id number] Vancomycin Inj 1,000 MG In NS 250 / 250 Inj 250 ML @ 250 mls/hr IV.SIG Q24H [facility] Rx#:[id number] Oral 480 / 480 240 / 240 Output: Urine 600 / 600 100 / 100 Other: # Voids 2 Date of Last Bowel Movement 06/21/18 06/22/18 # Bowel Movements 1 1 Narrative: Improved aeration right lung since yesterday, good aeration on the left Unlabored breathing On room air, no acute distress Heart sounds regular rate rhythm Results - Labs CBC & Chem 7: 06/21/18 04:46 06/21/18 04:46 Laboratory Results - last 24 hr 06/21/18 06/21/18 06/21/18 12:51 14:15 14:15 POC Glucose 141 H Pleural pH 8.0 Pleural RBC 5377 H Pleural Nuc Cells 2433 H Pleural Neutrophils 54 Pleural Lymphocytes 42 Pleural Histocytes 1 Pleural Mesothelial 3 Pleural Total Protein 4.6 Pleural LDH 353 Pleural Glucose 125 Pleural Amylase 48 Microbiology 06/21/18 14:15 Fluid - Pleural fluid Gram Stain - Final 06/21/18 14:15 Abscess - Chest Fungal Smear - Final No fungal elements seen 06/20/18 16:30 Blood - Peripheral Aerobic Blood Culture - Preliminary No growth in 1 day 06/20/18 16:30 Blood - Peripheral Anaerobic Blood Culture - Preliminary No growth in 1 day 06/20/18 16:35 Blood - Peripheral Aerobic Blood Culture - Preliminary No growth in 1 day 06/20/18 16:35 Blood - Peripheral Anaerobic Blood Culture - Preliminary No growth in 1 day - Imaging Impressions Chest X-Ray 06/21/18 00:00 CONCLUSION: 1. Near complete resolution of right pleural effusion postthoracentesis. No pneumothorax. 2. Patchy parenchymal consolidation of both lungs, improved on the right and not significantly changed on the left. Assessment and Plan - Assessment (1) SIRS (systemic inflammatory response syndrome) Code(s): R65.10 - Systemic inflammatory response syndrome (SIRS) of non- infectious origin without acute organ dysfunction Status: Acute (2) Ovarian cancer Code(s): C56.9 - Malignant neoplasm of unspecified ovary Status: Acute (3) PNA (pneumonia) Code(s): J18.9 - Pneumonia, unspecified organism Status: Acute (4) Intractable pain Code(s): R52 - Pain, unspecified Status: Acute (5) Pleural effusion Code(s): J90 - Pleural effusion, not elsewhere classified Status: Acute - Plan 83-year-old white female admitted for sepsis likely secondary to pneumonia. Possible right lung collapse with significant right-sided pleural effusion, actively being treated for ovarian cancer with chemotherapy by Dr. Alaniz. Has known metastatic disease in the abdomen and chest. Sepsis Likely secondary to pneumonia, continue IV fluids and antibiotics as below -improving since admission, f/u cultures Shortness of breath Pneumonia Pleural effusion Possibly secondary to pneumonia and/or cancer Continue Zosyn and azithromycin -Status post thoracentesis, cytology and cultures pending -pulmonology following -Supplemental oxygen and duo nebs, culture of pleural fluids Ovarian CA: Metastatic. Follows w/ Dr. Alaniz, recently started on Gemcitabine , CT Abd/Pelvis and CTA Chest w/ progressive metastatic disease not previously seen. Dr. Alaniz consulted by ER physician, findings apparently known, no changes from [facility] perspective. Intractable Pain: likely due to progression of ovarian ca, Morphine prn as needed To return to pharmacological anti-coagulation once procedure agenda is addressed and completed
[2018-06-22] MEDS: Vancomycin Inj 1,000 MG in Sodium Chlor 0.9% Inj 250 ML IV.SIG SCH (15:01)
--- NOTE | 2018-06-22 15:33 | P.PN ---
Subjective Interval history: Had a Right thoracentesis, and Drained 1 L of fluid. CXR is stable , and no Pneumo. O2 sats drop at nite. Physical Exam Vital signs: Vital Signs 06/21/18 16:51 06/21/18 17:05 06/21/18 18:32 Temperature 98 F 99.4 F Pulse Rate 88 Respiratory Rate 20 Blood Pressure 139/69 Pulse Oximetry 93 L 93 L 06/21/18 19:00 06/21/18 20:00 06/21/18 23:00 Temperature 99.4 F Pulse Rate 90 89 86 Respiratory Rate 16 Blood Pressure 122/63 Pulse Oximetry 99 06/22/18 00:00 06/22/18 03:00 06/22/18 03:51 Temperature 99 F 99 F Pulse Rate 85 81 79 Respiratory Rate 16 16 Blood Pressure 122/57 L 124/65 Pulse Oximetry 94 L 94 L 06/22/18 08:00 06/22/18 08:26 06/22/18 09:20 Temperature 98.3 F Pulse Rate 88 87 Respiratory Rate 18 Blood Pressure 111/50 L Pulse Oximetry 91 L 97 06/22/18 12:00 06/22/18 13:37 Temperature 98.4 F Pulse Rate 80 84 Respiratory Rate 16 Blood Pressure 119/56 L Pulse Oximetry 92 L Intake & Output 06/21/18 06/22/18 06/22/18 18:59 06:59 18:59 Intake Total 1680 / 1680 940 / 940 200 / 200 Output Total 600 / 600 100 / 100 Balance 1080 / 1080 840 / 840 200 / 200 Weight 59.4 kg Intake: IV 1200 / 1200 700 / 700 200 / 200 NS Inj 1,000 ML @ 100 mls/hr IV 1000 / 1000 .CONT .Q10H [facility] Rx#:[id number] Azithromycin Inj 500 MG In NS 250 / 250 Inj 250 ML @ 250 mls/hr IV.SIG Q24H [facility] Rx#:[id number] Zosyn 4.5 GM Premix 4.5 gm In 200 / 200 200 / 200 200 / 200 100 ml @ 200 mls/hr IV.SIG Q6H [facility] Rx#:[id number] Vancomycin Inj 1,000 MG In NS 250 / 250 Inj 250 ML @ 250 mls/hr IV.SIG Q24H [facility] Rx#:[id number] Oral 480 / 480 240 / 240 Output: Urine 600 / 600 100 / 100 Other: # Voids 2 Date of Last Bowel Movement 06/21/18 06/22/18 06/22/18 # Bowel Movements 1 1 Narrative: Improved aeration right lung since yesterday, good aeration on the left GENERAL: Elderly W/F alert and in no distress SKIN: Warm and dry. HEAD: Atraumatic. Normocephalic. EYES: Pupils equal and round. No scleral icterus. No injection or drainage. ENT: No nasal bleeding or discharge. Mucous membranes pink and moist. NECK: Trachea midline. No JVD. CARDIOVASCULAR: Regular rate and rhythm. RESPIRATORY: No accessory muscle use. Clear to auscultation.Decreased breath sounds on R. GASTROINTESTINAL: Abdomen soft, non-tender, nondistended. Hepatic and splenic margins not palpable. MUSCULOSKELETAL: Extremities without clubbing, cyanosis, or edema. No obvious deformities. NEUROLOGICAL: Awake and alert. No obvious cranial nerve deficits. Motor grossly within normal limits. Normal speech. PSYCHIATRIC: Appropriate mood and affect; insight and judgment normal. Results - Labs CBC & Chem 7: 06/21/18 04:46 06/21/18 04:46 Laboratory Results - last 24 hr 06/21/18 06/21/18 14:15 14:15 Pleural pH 8.0 Pleural RBC 5377 H Pleural Nuc Cells 2433 H Pleural Neutrophils 54 Pleural Lymphocytes 42 Pleural Histocytes 1 Pleural Mesothelial 3 Pleural Total Protein 4.6 Pleural LDH 353 Pleural Glucose 125 Pleural Amylase 48 Microbiology 06/21/18 14:15 Fluid - Pleural fluid Gram Stain - Final 06/21/18 14:15 Fluid - Pleural fluid Body Fluid Culture - Preliminary No growth in 24 hours 06/20/18 16:30 Blood - Peripheral Aerobic Blood Culture - Preliminary No growth in 2 days 06/20/18 16:30 Blood - Peripheral Anaerobic Blood Culture - Preliminary No growth in 2 days 06/20/18 16:35 Blood - Peripheral Aerobic Blood Culture - Preliminary No growth in 2 days 06/20/18 16:35 Blood - Peripheral Anaerobic Blood Culture - Preliminary No growth in 2 days 06/21/18 14:15 Abscess - Chest Fungal Smear - Final No fungal elements seen Assessment and Plan - Assessment (1) Atelectasis Code(s): J98.11 - Atelectasis Status: Acute (2) HCAP (healthcare-associated pneumonia) Code(s): J18.9 - Pneumonia, unspecified organism Status: Acute (3) Sepsis Code(s): A41.9 - Sepsis, unspecified organism Status: Acute (4) Pleural effusion Code(s): J90 - Pleural effusion, not elsewhere classified Status: Acute (5) Ovarian cancer Code(s): C56.9 - Malignant neoplasm of unspecified ovary Status: Acute (6) PNA (pneumonia) Code(s): J18.9 - Pneumonia, unspecified organism Status: Acute (7) Intractable pain Code(s): R52 - Pain, unspecified Status: Acute (8) SIRS (systemic inflammatory response syndrome) Code(s): R65.10 - Systemic inflammatory response syndrome (SIRS) of non- infectious origin without acute organ dysfunction Status: Acute - Plan 1. Will leave on O2 2 L at HS 2. Continue antibiotics , Zosyn/Vanco 3. Nebs qid prn, Duoneb 4. IS at bedside q2h 5. Await PL Fluid Cytology results.
[2018-06-22] MEDS: Azithromycin Inj 500 MG in Sodium Chlor 0.9% Inj 250 ML IV.SIG SCH (21:39)
[2018-06-23] MEDS: Piperacil/Tazo 4.5 GM Premix 4.5 GM/100 ML BAG IV.SIG SCH ×4 (02:39→19:54)
--- NOTE | 2018-06-23 07:54 | P.PNONC ---
Subjective Interval history: patient resting in bed overall states she feels better she denies pain states her breathing has improved I had an extensive conversation about the disease process, process, palliative treatment, patient's symptoms and her wishes. I explained that any treatment at this point is palliative not curative, at this point it is too soon to know if she will respond to the Gemzar as she is s/p cycle 1 day 1 (she would be due for day 8 on 06/25/18). She stated understanding but expressed to me her wish that she should never have started treatment, she wishes to feel well for the time she has left. I talked with her about Palliative Care and their role. I also discussed Hospice care with her and she wishes to talk with a byproducts extractor for information. 30 of this 35 minute face to face encounter was discussion of disease process, evaluation of patients wishes and coordination of care. Objective Vital Signs/Intake & Output: Vital Signs 06/22/18 08:00 06/22/18 08:26 06/22/18 09:20 Temperature 98.3 F Pulse Rate 88 87 Respiratory Rate 18 Blood Pressure 111/50 L Pulse Oximetry 91 L 97 06/22/18 12:00 06/22/18 13:37 06/22/18 16:00 Temperature 98.4 F Pulse Rate 80 84 82 Respiratory Rate 16 Blood Pressure 119/56 L Pulse Oximetry 92 L 06/22/18 16:18 06/22/18 16:58 06/22/18 20:00 Temperature 98.7 F 98.7 F Pulse Rate 80 84 Respiratory Rate 16 18 Blood Pressure 129/64 135/75 Pulse Oximetry 97 92 L 94 L 06/22/18 20:18 06/23/18 00:00 06/23/18 00:15 Temperature 98.3 F Pulse Rate 84 94 H 76 Respiratory Rate 16 Blood Pressure 116/63 Pulse Oximetry 94 L 06/23/18 04:00 06/23/18 04:05 Temperature 97.5 F L Pulse Rate 78 73 Respiratory Rate 16 Blood Pressure 122/68 Pulse Oximetry 94 L Intake & Output 06/22/18 06/23/18 06/23/18 18:59 06:59 18:59 Intake Total 686 / 686 690 / 690 Output Total 1300 / 1300 500 / 500 Balance -614 / -614 190 / 190 Weight 59.8 kg Intake: IV 450 / 450 450 / 450 Azithromycin Inj 500 MG In NS 250 / 250 Inj 250 ML @ 250 mls/hr IV.SIG Q24H [facility] Rx#:[id number] Zosyn 4.5 GM Premix 4.5 gm In 200 / 200 200 / 200 100 ml @ 200 mls/hr IV.SIG Q6H [facility] Rx#:[id number] Vancomycin Inj 1,000 MG In NS 250 / 250 Inj 250 ML @ 250 mls/hr IV.SIG Q24H [facility] Rx#:[id number] Oral 236 / 236 240 / 240 Output: Urine 1300 / 1300 500 / 500 Other: Date of Last Bowel Movement 06/22/18 06/22/18 # Bowel Movements 2 Result Diagrams: 06/21/18 04:46 06/21/18 04:46 Culture Results: Microbiology 06/21/18 14:15 Gram Stain - Final Fluid - Pleural fluid Body Fluid Culture - Preliminary No growth in 24 hours 06/20/18 16:30 Aerobic Blood Culture - Preliminary Blood - Peripheral No growth in 2 days Anaerobic Blood Culture - Preliminary No growth in 2 days 06/20/18 16:35 Aerobic Blood Culture - Preliminary Blood - Peripheral No growth in 2 days Anaerobic Blood Culture - Preliminary No growth in 2 days 06/21/18 14:15 Fungal Smear - Final Abscess - Chest No fungal elements seen 06/20/18 16:55 Influenza Types A,B Antigen - Final Nasal Wash Negative for FLU A and B antigen Infection due to influenza A or B cannot be ruled out since the antigen present in the sample may be below the detection limit of the test. Medications: Active Medications Generic Name Dose Route Start Last Admin Trade Name Freq PRN Reason Stop Dose Admin Diphenhydramine HCl 50 mg 06/22/18 18:39 06/22/18 18:56 Benadryl PO 50 mg Q6H PRN Administration RASH Enoxaparin Sodium 40 mg 06/21/18 09:00 06/22/18 08:36 Lovenox Inj SQ 40 mg Q24H [facility] Administration Azithromycin 500 mg/ Sodium 250 mls @ 250 mls/hr 06/21/18 21:00 06/23/18 00: 10 Chloride IV.SIG Infused Q24H [facility] Infusion Piperacillin/Tazobactam/Dextrose 4.5 gm in 100 mls @ 200 mls/hr 06/21/18 02: 00 06/23/18 04:02 Zosyn 4.5 Gm Premix IV.SIG Infused Q6H [facility] Infusion Vancomycin HCl 1,000 mg/ 250 mls @ 250 mls/hr 06/21/18 15:00 06/22/18 16:57 Sodium Chloride IV.SIG Infused Q24H [facility] Infusion Ondansetron HCl 4 mg 06/20/18 19:59 06/21/18 16:39 Zofran Inj IV.PUSH 4 mg Q6H PRN Administration NAUSEA OR VOMITING Senna/Docusate Sodium 1 tab 06/20/18 21:00 06/22/18 21:41 Susan-Colace PO Not Given BID [facility] Objective Remarks: GENERAL: frail SKIN: Warm and dry. HEAD: Normocephalic. EYES: No scleral icterus. No injection or drainage. CARDIOVASCULAR: Regular rate and rhythm without murmurs. RESPIRATORY: Breath sounds equal bilaterally,decreased in bases, no wheezing GASTROINTESTINAL: Abdomen soft, non-tender, nondistended. EXTREMITIES: teds and scds MUSCULOSKELETAL: deconditioned NEUROLOGICAL: No obvious focal deficit. Awake, alert, and oriented x3. PSYCHIATRIC: Appropriate mood and affect; insight and judgment normal. Assessment/Plan (1) Sepsis Code(s): A41.9 - Sepsis, unspecified organism Status: Acute (2) Pleural effusion Code(s): J90 - Pleural effusion, not elsewhere classified Status: Acute (3) Ovarian cancer Code(s): C56.9 - Malignant neoplasm of unspecified ovary Status: Acute - Plan patient is s/p cycle 1, day 1 Rosalvazar extensive discussion addressing the disease process and her wishes. Hospice consulted for information only at this time consideration of Palliative Care consult to help clarify goals, and establish code status Medicine team following and we are grateful for their care. ID following and we are grateful for their care. Discussed with patient, RN and Dr. Alaniz
[2018-06-23] MEDS: Enoxaparin Inj 40 MG/0.4 ML Syringe SQ SCH (10:15)
[2018-06-23] MEDS: Senna/Docusate Sodium 8.6/50 MG Tablet PO SCH ×2 (10:15→20:53)
--- NOTE | 2018-06-23 12:00 | P.PN ---
Subjective Interval history: Remains stable and off O2. No chest pains. Chest Xray was stable with no Pneumothorax. Physical Exam Vital signs: Vital Signs 06/22/18 12:00 06/22/18 13:37 06/22/18 16:00 Temperature 98.4 F Pulse Rate 80 84 82 Respiratory Rate 16 Blood Pressure 119/56 L Pulse Oximetry 92 L 06/22/18 16:18 06/22/18 16:58 06/22/18 20:00 Temperature 98.7 F 98.7 F Pulse Rate 80 84 Respiratory Rate 16 18 Blood Pressure 129/64 135/75 Pulse Oximetry 97 92 L 94 L 06/22/18 20:18 06/23/18 00:00 06/23/18 00:15 Temperature 98.3 F Pulse Rate 84 94 H 76 Respiratory Rate 16 Blood Pressure 116/63 Pulse Oximetry 94 L 06/23/18 04:00 06/23/18 04:05 06/23/18 08:41 Temperature 97.5 F L 98.1 F Pulse Rate 78 73 81 Respiratory Rate 16 20 Blood Pressure 122/68 134/68 Pulse Oximetry 94 L 92 L 06/23/18 08:53 Temperature Pulse Rate Respiratory Rate Blood Pressure Pulse Oximetry 91 L Intake & Output 06/22/18 06/23/18 06/23/18 18:59 06:59 18:59 Intake Total 686 / 686 690 / 690 100 / 100 Output Total 1300 / 1300 500 / 500 Balance -614 / -614 190 / 190 100 / 100 Weight 59.8 kg Intake: IV 450 / 450 450 / 450 100 / 100 Azithromycin Inj 500 MG In NS 250 / 250 Inj 250 ML @ 250 mls/hr IV.SIG Q24H [facility] Rx#:[id number] Zosyn 4.5 GM Premix 4.5 gm In 200 / 200 200 / 200 100 / 100 100 ml @ 200 mls/hr IV.SIG Q6H [facility] Rx#:[id number] Vancomycin Inj 1,000 MG In NS 250 / 250 Inj 250 ML @ 250 mls/hr IV.SIG Q24H [facility] Rx#:[id number] Oral 236 / 236 240 / 240 Output: Urine 1300 / 1300 500 / 500 Other: Date of Last Bowel Movement 06/22/18 06/22/18 06/23/18 # Bowel Movements 2 Narrative: GENERAL: Elderly W/F alert and in no distress SKIN: Warm and dry. HEAD: Atraumatic. Normocephalic. EYES: Pupils equal and round. No scleral icterus. No injection or drainage. ENT: No nasal bleeding or discharge. Mucous membranes pink and moist. NECK: Trachea midline. No JVD. CARDIOVASCULAR: Regular rate and rhythm. RESPIRATORY: No accessory muscle use. Clear to auscultation.Decreased breath sounds on Right. GASTROINTESTINAL: Abdomen soft, non-tender, nondistended. Hepatic and splenic margins not palpable. MUSCULOSKELETAL: Extremities without clubbing, cyanosis, or edema. No obvious deformities. NEUROLOGICAL: Awake and alert. No obvious cranial nerve deficits. Motor grossly within normal limits. Normal speech. PSYCHIATRIC: Appropriate mood and affect; insight and judgment normal. Results - Labs CBC & Chem 7: 06/21/18 04:46 06/21/18 04:46 Microbiology 06/20/18 16:30 Blood - Peripheral Aerobic Blood Culture - Preliminary No growth in 3 days 06/20/18 16:30 Blood - Peripheral Anaerobic Blood Culture - Preliminary No growth in 3 days 06/20/18 16:35 Blood - Peripheral Aerobic Blood Culture - Preliminary No growth in 3 days 06/20/18 16:35 Blood - Peripheral Anaerobic Blood Culture - Preliminary No growth in 3 days 06/21/18 14:15 Fluid - Pleural fluid Gram Stain - Final 06/21/18 14:15 Fluid - Pleural fluid Body Fluid Culture - Preliminary No growth in 24 hours 06/21/18 14:15 Abscess - Chest Fungal Smear - Final No fungal elements seen Assessment and Plan - Assessment (1) Atelectasis Code(s): J98.11 - Atelectasis Status: Acute (2) HCAP (healthcare-associated pneumonia) Code(s): J18.9 - Pneumonia, unspecified organism Status: Acute (3) Sepsis Code(s): A41.9 - Sepsis, unspecified organism Status: Acute (4) Pleural effusion Code(s): J90 - Pleural effusion, not elsewhere classified Status: Acute (5) Ovarian cancer Code(s): C56.9 - Malignant neoplasm of unspecified ovary Status: Acute (6) PNA (pneumonia) Code(s): J18.9 - Pneumonia, unspecified organism Status: Acute (7) Intractable pain Code(s): R52 - Pain, unspecified Status: Acute (8) SIRS (systemic inflammatory response syndrome) Code(s): R65.10 - Systemic inflammatory response syndrome (SIRS) of non- infectious origin without acute organ dysfunction Status: Acute - Plan 1. Will leave on O2 2 L at HS 2. Continue antibiotics , Zosyn/Vanco 3. Nebs qid prn, Duoneb 4. CBC,BMP, Chest Xray . 5. Await PL Fluid Cytology results. 6. have a 6 Min walk test and get home O2
--- NOTE | 2018-06-23 13:19 | P.PNIM ---
Subjective Interval history: The patient was resting in bed comfortably. Her family was at the bedside. She was curious about her results. She says she does not have much pain. She is ambulating and breathing comfortably. Physical Exam Vital signs: Vital Signs 06/22/18 13:37 06/22/18 16:00 06/22/18 16:18 Temperature 98.4 F Pulse Rate 84 82 Respiratory Rate 16 Blood Pressure 119/56 L Pulse Oximetry 92 L 97 06/22/18 16:58 06/22/18 20:00 06/22/18 20:18 Temperature 98.7 F 98.7 F Pulse Rate 80 84 84 Respiratory Rate 16 18 Blood Pressure 129/64 135/75 Pulse Oximetry 92 L 94 L 06/23/18 00:00 06/23/18 00:15 06/23/18 04:00 Temperature 98.3 F 97.5 F L Pulse Rate 94 H 76 78 Respiratory Rate 16 16 Blood Pressure 116/63 122/68 Pulse Oximetry 94 L 94 L 06/23/18 04:05 06/23/18 08:41 06/23/18 08:53 Temperature 98.1 F Pulse Rate 73 81 Respiratory Rate 20 Blood Pressure 134/68 Pulse Oximetry 92 L 91 L 06/23/18 12:00 Temperature Pulse Rate Respiratory Rate Blood Pressure Pulse Oximetry 92 L Intake & Output 06/22/18 06/23/18 06/23/18 18:59 06:59 18:59 Intake Total 686 / 686 690 / 690 100 / 100 Output Total 1300 / 1300 500 / 500 Balance -614 / -614 190 / 190 100 / 100 Weight 59.8 kg Intake: IV 450 / 450 450 / 450 100 / 100 Azithromycin Inj 500 MG In NS 250 / 250 Inj 250 ML @ 250 mls/hr IV.SIG Q24H [facility] Rx#:[id number] Zosyn 4.5 GM Premix 4.5 gm In 200 / 200 200 / 200 100 / 100 100 ml @ 200 mls/hr IV.SIG Q6H [facility] Rx#:[id number] Vancomycin Inj 1,000 MG In NS 250 / 250 Inj 250 ML @ 250 mls/hr IV.SIG Q24H [facility] Rx#:[id number] Oral 236 / 236 240 / 240 Output: Urine 1300 / 1300 500 / 500 Other: Date of Last Bowel Movement 1106/22/18 06/23/18 # Bowel Movements 2 Narrative: GENERAL: No distress. SKIN: Warm and dry. HEAD: Atraumatic. Normocephalic. EYES: Pupils equal and round. No scleral icterus. No injection or drainage. ENT: No nasal bleeding or discharge. Mucous membranes pink and moist. NECK: Trachea midline. No JVD. CARDIOVASCULAR: Regular rate and rhythm. RESPIRATORY: No accessory muscle use. Clear to auscultation. Decreased breath sounds on right. GASTROINTESTINAL: Abdomen soft, non-tender, nondistended. Hepatic and splenic margins not palpable. MUSCULOSKELETAL: Extremities without clubbing, cyanosis, or edema. No obvious deformities. NEUROLOGICAL: Awake and alert. No obvious cranial nerve deficits. Motor grossly within normal limits. Normal speech. PSYCHIATRIC: Appropriate mood and affect; insight and judgment normal. Results - Labs CBC & Chem 7: 06/21/18 04:46 06/21/18 04:46 Microbiology 06/21/18 14:15 Fluid - Pleural fluid Gram Stain - Final 06/21/18 14:15 Fluid - Pleural fluid Body Fluid Culture - Preliminary No growth in 48 hours 06/20/18 16:30 Blood - Peripheral Aerobic Blood Culture - Preliminary No growth in 3 days 06/20/18 16:30 Blood - Peripheral Anaerobic Blood Culture - Preliminary No growth in 3 days 06/20/18 16:35 Blood - Peripheral Aerobic Blood Culture - Preliminary No growth in 3 days 06/20/18 16:35 Blood - Peripheral Anaerobic Blood Culture - Preliminary No growth in 3 days 06/21/18 14:15 Abscess - Chest Fungal Smear - Final No fungal elements seen Assessment and Plan - Assessment (1) SIRS (systemic inflammatory response syndrome) Code(s): R65.10 - Systemic inflammatory response syndrome (SIRS) of non- infectious origin without acute organ dysfunction Status: Acute (2) Ovarian cancer Code(s): C56.9 - Malignant neoplasm of unspecified ovary Status: Acute (3) PNA (pneumonia) Code(s): J18.9 - Pneumonia, unspecified organism Status: Acute (4) Intractable pain Code(s): R52 - Pain, unspecified Status: Acute (5) Pleural effusion Code(s): J90 - Pleural effusion, not elsewhere classified Status: Acute - Plan 83-year-old female admitted for sepsis likely secondary to pneumonia. Possible right lung collapse with significant right-sided pleural effusion, actively being treated for ovarian cancer with chemotherapy by Dr. Alaniz. Has known metastatic disease in the abdomen and chest. Sepsis Likely secondary to pneumonia. -continue IV fluids and antibiotics as below. -improving since admission, f/u cultures. Shortness of breath Pneumonia Pleural effusion Possibly secondary to pneumonia and/or cancer. Continue Zosyn and vancomycin. -Status post thoracentesis, cytology and cultures pending. -pulmonology following. -Supplemental oxygen and duo nebs, culture of pleural fluids. -walk test prior to discharge. Ovarian CA Metastatic. Follows w/ Dr. Alaniz, recently started on Gemcitabine, CT Abd/ Pelvis and CTA Chest w/ progressive metastatic disease not previously seen. Dr. Alaniz consulted by ER physician, findings apparently known, no changes from [employer] perspective. -outpt management. Intractable Pain Likely due to progression of ovarian ca. Improved. -Morphine prn as needed. Anemia Likely s/t above. -follow CBC. PPx: Lovenox
[2018-06-23] MEDS ORDERED: Pharmacy Ordered Lab Info OTHER ONE (14:45)
[2018-06-23] MEDS: Vancomycin Inj 1,000 MG in Sodium Chlor 0.9% Inj 250 ML IV.SIG SCH (16:30)
[2018-06-23] MEDS: Azithromycin Inj 500 MG in Sodium Chlor 0.9% Inj 250 ML IV.SIG SCH (20:53)
[2018-06-24 00:23] VITALS: O2SAT 95
[2018-06-24] MEDS: Piperacil/Tazo 4.5 GM Premix 4.5 GM/100 ML BAG IV.SIG SCH ×2 (03:13→10:24)
[2018-06-24 03:18] VITALS: BP 126/79; RESP 16; TEMP 98.4
--- NOTE | 2018-06-24 06:24 | XR ---
EXAM DATE: 06/24/2018 5:16 AM EST AGE/SEX: 83 years / Female INDICATIONS: Short of breath. CLINICAL DATA: This is the patient's subsequent encounter. Patient reports that signs and symptoms h ave been present for 4 - 6 days and indicates a pain score of 0/10. MEDICAL/SURGICAL HISTORY: None. . Post right thoracentesis. COMPARISON: [facility], CHEST 1V SINGLE AP, 06/21/2018. . FINDINGS: A single AP portable semierect view of the chest was obtained. The right sided implantable port amparo ter remains in place. Hazy airspace disease remains in both lungs right greater than left. The right costophrenic angle appears mildly blunted. The heart size is mildly enlarged. Atherosclerotic changes are present in the aorta. The bony thorax remains intact. There are overlying electrocardiogram lead s. CONCLUSION: 1. Hazy opacity in both lungs right greater than left. This appears mildly increased. 2. The right costophrenic angle now appears blunted which could indicate a small effusion. Electronically signed by: Joe Renee MD 06/24/2018 6:22 AM EST
[2018-06-24 06:46] LABS: Eos # (Auto) 0.1 th/mm3 (0.0-0.4); Eos % (Auto) 4.8 % (0.0-4.0); Hemoglobin 11.8 gm/dL (11.6-15.3); Lymph # (Auto) 0.8 th/mm3 (1.0-4.8); Lymph % (Auto) 34.8 % (9.0-44.0); Mean Corpuscular HGB Conc 33.7 % (32.0-36.0); Mean Corpuscular Hemoglobin 31.2 pg (27.0-34.0); Mean Corpuscular Volume 92.8 fL (80.0-100.0); Mono # (Auto) 0.3 th/mm3 (0.0-0.9); Mono % (Auto) 11.9 % (0.0-8.0); Neut # (Auto) 1.1 th/mm3 (1.8-7.7); Neut % (Auto) 47.5 % (16.0-70.0); Platelet Count 207 th/mm3 (150-450); Red Blood Count 3.77 mil/mm3 (4.00-5.30); Red Cell Distribution Width 13.5 % (11.6-17.2); White Blood Count 2.2 th/mm3 (4.0-11.0)
[2018-06-24 07:15] LABS: Calcium 8.5 mg/dL (8.5-10.1); Carbon Dioxide 24.2 meq/L (21.0-32.0); Potassium 3.2 meq/L (3.5-5.1)
--- NOTE | 2018-06-24 08:15 | MB ---
cc: Melany Alaniz MD,Kylee Carpio,No Vargas,Annia Vega,Marlene Decker,Jacob Farnsworth MD DATE: 06/24/2018 This summarizes a conversation with Bev Garrett and her family yesterday as well as today. She has given great consideration to her overall situation, how she is feeling, the underlying ovarian cancer, and her overall prognosis. She has come to a well thought out and insightful decision to forego any additional chemotherapy. She believes that the side effects of chemotherapy are likely to adversely affect her quality of life, where as she prefers to discontinue any additional cancer treatment. She has been encouraged to not make a decision without thinking this through and I know she is feeling poorly. This was our advice on Saturday when we first saw her in consultation. However, she is feeling better, thinking clearly. She is breathing unlabored. Her performance status has improved a little bit in the last 48 hours. She has had family at bedside almost around the clock, and she and her family have had a series of discussions and consideration of this. Upon her request, hospice is consulted; and she is interested in having them available and learning what resources are available when the time becomes necessary to engage them more actively. She is interested in home care via hospice primarily. Discussions ensued. Questions were asked and answered. They are grateful for the care provided. She is certain about this decision and whereas it is not universally agreed upon amongst family members, they seem to be accepting of her wishes and understand where she is coming from. PHYSICAL EXAMINATION: VITAL SIGNS: She remains afebrile. Her only elevated temperature was at admission at 101. Otherwise, she is afebrile. Pulse 78 80, respirations 16-18, blood pressure 126-127/64-79, O2 saturations 95% on oxygen. GENERAL: She is alert and oriented x 3, in no acute distress, breathing comfortably. Respirations are labored with mild activity. ABDOMEN: Remains nonacute. No rebound or guarding. More questions were asked and answered. She is made aware that her blood cultures are no growth thus far 48 hours. The working premise is likely pneumonia as a source of her febrile illness. She is on IV antibiotics. It is uncertain to what extent she may be able to be transitioned to oral antibiotics or transition to home care with IV antibiotics. It is her hope to transition to home as soon as it is felt reasonable by her primary medical team. She understands we are available to assist in any way possible. We will continue to follow. She and her family expressed good understanding. MD TRESA Person/linda , 07:46 AM , 07:57 AM
[2018-06-24] MEDS: Senna/Docusate Sodium 8.6/50 MG Tablet PO SCH (10:07)
[2018-06-24] MEDS: Enoxaparin Inj 40 MG/0.4 ML Syringe SQ SCH (10:24)
--- NOTE | 2018-06-24 12:27 | P.DS ---
Date of admission: 06/20/18 19:54 Primary care physician: No Carpio MD Anticipated date of discharge: 06/24/18 Brief History from admission: This is an 83-year-old female with a PMH of HTN, Hyperlipidemia and Stage III Ovarian Ca who was brought to the ER for c/o SOB and abdominal pain. States symptoms have been ongoing for several weeks, however progressively worse since today. Follows w/ Dr. Alaniz, recently started on Gemcitabine. Denies fever or chest pain. +non-productive cough. On arrival, BP 172/95, HR 126, O2 sat 86 % on RA, Temp 101. CBC unremarkable. INR 1.0. Chemistry essentially unremarkable. Troponin negative. UA negative for UTI. CT Abdomen/Pelvis evidence of metastatic disease along the serosal margin of liver, hepatic/ subdiaphragmatic abscess would also be in the differential, soft tissue metastatic deposits in the mesentery of left lower quadrant and central pelvic cavity, subcentimeter lucencies bony pelvis, probably metastatic. CTA Chest no PE, extensive metastatic disease to the lungs, metastatic adenopathy within the mediastinum, metastatic disease to the liver, huge right pleural effusion and right perihilar consolidation and/or compressive collapse. Dr. Alaniz consulted by ER physician. S/p Vanc/Zithro/Zosyn in ER. Patient update on day of discharge: The patient said that she did not want any further antibiotics. She said she was ready to go home. She wanted home hospice to be set up. She said that she does not have any pain or anxiety at this time. Family at the bedside. Discussed with case management. DS: Diagnosis - Discharge Diagnosis (1) SIRS (systemic inflammatory response syndrome) Status: Acute (2) Ovarian cancer Status: Acute (3) PNA (pneumonia) Status: Acute (4) Intractable pain Status: Acute (5) Pleural effusion Status: Acute DS: Summary Hospital Course: Sepsis/Shortness of breath Imaging significant for possible right lung collapse with significant right- sided pleural effusion. She was started on IV antibiotics and IVFs. She received oxygen and nebs as needed. Pulmonology was consulted. S/p thoracentesis. The pt said she was not tolerating antibiotics secondary to side effects and would prefer to go home without them. Case management was consulted and the pt will be discharged home with hospice services. Ovarian CA Follows w/ Dr. Alaniz, recently started on Gemcitabine. CT Abd/Pelvis and CTA Chest w/ progressive metastatic disease. She received pain control as needed. Dr. Alaniz was consulted and eventually hospice was consulted. The pt decided to pursue home hospice services at this time. - Time Spent with Patient Total time spent providing and/or coordinating discharge services: Less than 30 minutes - Quality: VTE Deep Vein Thrombosis/Pulmonary Embolism Present on Admission: No Exam Vital signs: Vital Signs 06/23/18 14:00 06/23/18 15:32 06/23/18 16:00 Temperature 97.9 F 97.8 F Pulse Rate 84 82 83 Respiratory Rate 16 16 Blood Pressure 134/74 156/82 H Pulse Oximetry 94 L 97 06/23/18 19:00 06/23/18 19:50 06/23/18 23:03 Temperature 98.9 F Pulse Rate 90 83 79 Respiratory Rate 18 Blood Pressure 132/81 Pulse Oximetry 96 06/24/18 00:00 06/24/18 00:20 06/24/18 03:06 Temperature 97.9 F Pulse Rate 79 78 Respiratory Rate 16 18 Blood Pressure 127/64 Pulse Oximetry 95 06/24/18 03:16 06/24/18 09:32 Temperature 98.4 F Pulse Rate 80 Respiratory Rate 16 Blood Pressure 126/79 Pulse Oximetry 95 95 Intake & Output 06/23/18 06/24/18 06/24/18 18:59 06:59 18:59 Intake Total 690 / 690 450 / 450 Output Total 1100 / 1100 Balance -410 / -410 450 / 450 Weight 57.9 kg Intake: IV 450 / 450 450 / 450 Azithromycin Inj 500 MG In NS 250 / 250 Inj 250 ML @ 250 mls/hr IV.SIG Q24H CHAD Rx#:[id number] Zosyn 4.5 GM Premix 4.5 gm In 200 / 200 200 / 200 100 ml @ 200 mls/hr IV.SIG Q6H CHAD Rx#:[id number] Vancomycin Inj 1,000 MG In NS 250 / 250 Inj 250 ML @ 250 mls/hr IV.SIG Q24H [facility]AD Rx#:[id number] Oral 240 / 240 Output: Urine 1100 / 1100 Other: # Voids 2 Date of Last Bowel Movement 06/23/18 06/24/18 # Bowel Movements 2 # Incontinent Bowel Movements 2 Narrative: GENERAL: No distress. SKIN: Warm and dry. HEAD: Atraumatic. Normocephalic. EYES: Pupils equal and round. No scleral icterus. No injection or drainage. ENT: No nasal bleeding or discharge. Mucous membranes pink and moist. NECK: Trachea midline. No JVD. CARDIOVASCULAR: Regular rate and rhythm. RESPIRATORY: No accessory muscle use. Clear to auscultation. Decreased breath sounds on right. GASTROINTESTINAL: Abdomen soft, non-tender, nondistended. Hepatic and splenic margins not palpable. MUSCULOSKELETAL: Extremities without clubbing, cyanosis, or edema. No obvious deformities. NEUROLOGICAL: Awake and alert. No obvious cranial nerve deficits. Motor grossly within normal limits. Normal speech. PSYCHIATRIC: Appropriate mood and affect; insight and judgment normal. Results Procedures completed during hospitalization: Thoracentesis Labs on day of discharge: Labs from last 24 hours 06/24/18 06/24/18 06/23/18 06:12 06:12 15:00 WBC 2.2 L RBC 3.77 L Hgb 11.8 Hct 35.0 MCV 92.8 MCH 31.2 MCHC 33.7 RDW 13.5 Plt Count 207 MPV 7.0 Neut % (Auto) 47.5 Lymph % (Auto) 34.8 [place] % (Auto) 11.9 H Eos % (Auto) 4.8 H Baso % (Auto) 1.0 Neut # (Auto) 1.1 L Lymph # (Auto) 0.8 L [place] # (Auto) 0.3 Eos # (Auto) 0.1 Baso # (Auto) 0.0 WBC Differential . Differential Comment Auto diff final Sodium 141 Potassium 3.2 L Chloride 106 Carbon Dioxide 24.2 Anion Gap 11 BUN 7 Creatinine 0.83 Estimated GFR 66 L Random Glucose 115 H Calcium 8.5 Vancomycin Trough 4.8 L Preliminary micro results at discharge 06/20/18 16:30 Aerobic Blood Culture - Preliminary Blood - Peripheral No growth in 4 days Anaerobic Blood Culture - Preliminary No growth in 4 days 06/20/18 16:35 Aerobic Blood Culture - Preliminary Blood - Peripheral No growth in 4 days Anaerobic Blood Culture - Preliminary No growth in 4 days - Impressions ITS Impressions Abdomen/Pelvis CT 06/20/18 16:12 CONCLUSION: 1. Evidence of metastatic disease within and along the serosal margin of the liver as described. A hepatic/subdiaphragmatic abscess would also be in the differential. 2. Metastatic retroperitoneal and gonzalo hepatis lymphadenopathy. 3. Soft tissue metastatic deposits within the mesentery of the left lower quadrant and the central pelvic cavity. 4. Subcentimeter lucencies of the bony pelvis, probably metastatic. Chest CTA 06/20/18 16:12 CONCLUSION: 1. Possible PE 2. Extensive metastatic disease to the lungs not present previously 3. Metastatic adenopathy within the mediastinum in addition to metastatic implant and/or adenopathy adjacent to right hepatic lobe. 4. Metastatic disease within the liver. 5. Huge right pleural effusion and right perihilar consolidation and/or compressive collapse. Chest X-Ray 06/24/18 00:00 CONCLUSION: 1. Hazy opacity in both lungs right greater than left. This appears mildly increased. 2. The right costophrenic angle now appears blunted which could indicate a small effusion. Discharge Plan - Discharge Disposition Patient Disposition: 50 Hospice/Home - Discharge Condition Condition: Stable - Discharge Order Discharge Orders: Discharge Order (Routine); Ordered 06/24/18 Ordered By: Joe Peter - Discharge Details Anticipated Discharge Date: 06/24/18 - Physicians Team Primary Care Provider: No Carpio Attending Provider: Joe Peter Other Providers: Wilfredo Hayden MD ; Melany Alaniz MD
--- NOTE | 2018-06-24 13:06 | P.PN ---
Subjective Interval history: Off o2 and sats are 96. Doing better. Will go on Hospice . Physical Exam Vital signs: Vital Signs 06/23/18 14:00 06/23/18 15:32 06/23/18 16:00 Temperature 97.9 F 97.8 F Pulse Rate 84 82 83 Respiratory Rate 16 16 Blood Pressure 134/74 156/82 H Pulse Oximetry 94 L 97 06/23/18 19:00 06/23/18 19:50 06/23/18 23:03 Temperature 98.9 F Pulse Rate 90 83 79 Respiratory Rate 18 Blood Pressure 132/81 Pulse Oximetry 96 06/24/18 00:00 06/24/18 00:20 06/24/18 03:06 Temperature 97.9 F Pulse Rate 79 78 Respiratory Rate 16 18 Blood Pressure 127/64 Pulse Oximetry 95 06/24/18 03:16 06/24/18 09:32 Temperature 98.4 F Pulse Rate 80 Respiratory Rate 16 Blood Pressure 126/79 Pulse Oximetry 95 95 Intake & Output 06/23/18 06/24/18 06/24/18 18:59 06:59 18:59 Intake Total 690 / 690 450 / 450 Output Total 1100 / 1100 Balance -410 / -410 450 / 450 Weight 57.9 kg Intake: IV 450 / 450 450 / 450 Azithromycin Inj 500 MG In NS 250 / 250 Inj 250 ML @ 250 mls/hr IV.SIG Q24H [facility]AD Rx#:[id number] Zosyn 4.5 GM Premix 4.5 gm In 200 / 200 200 / 200 100 ml @ 200 mls/hr IV.SIG Q6H [facility]AD Rx#:[id number] Vancomycin Inj 1,000 MG In NS 250 / 250 Inj 250 ML @ 250 mls/hr IV.SIG Q24H [facility]AD Rx#:[id number] Oral 240 / 240 Output: Urine 1100 / 1100 Other: # Voids 2 Date of Last Bowel Movement 06/23/18 06/24/18 # Bowel Movements 2 # Incontinent Bowel Movements 2 Narrative: GENERAL: Elderly W/F in No distress. SKIN: Warm and dry. HEAD: Atraumatic. Normocephalic. EYES: Pupils equal and round. No scleral icterus. No injection or drainage. ENT: No nasal bleeding or discharge. Mucous membranes pink and moist. NECK: Trachea midline. No JVD. CARDIOVASCULAR: Regular rate and rhythm. RESPIRATORY: No accessory muscle use. Clear to auscultation. Decreased breath sounds on right. GASTROINTESTINAL: Abdomen soft, non-tender, nondistended. Hepatic and splenic margins not palpable. MUSCULOSKELETAL: Extremities without clubbing, cyanosis, or edema. No obvious deformities. NEUROLOGICAL: Awake and alert. No obvious cranial nerve deficits. Motor grossly within normal limits. Normal speech. PSYCHIATRIC: Appropriate mood and affect; insight and judgment normal. Results - Labs CBC & Chem 7: 06/24/18 06:12 06/24/18 06:12 Laboratory Results - last 24 hr 06/23/18 06/24/18 06/24/18 15:00 06:12 06:12 WBC 2.2 L RBC 3.77 L Hgb 11.8 Hct 35.0 MCV 92.8 MCH 31.2 MCHC 33.7 RDW 13.5 Plt Count 207 MPV 7.0 Neut % (Auto) 47.5 Lymph % (Auto) 34.8 [place] % (Auto) 11.9 H Eos % (Auto) 4.8 H Baso % (Auto) 1.0 Neut # (Auto) 1.1 L Lymph # (Auto) 0.8 L [place] # (Auto) 0.3 Eos # (Auto) 0.1 Baso # (Auto) 0.0 WBC Differential . Differential Comment Auto diff final Sodium 141 Potassium 3.2 L Chloride 106 Carbon Dioxide 24.2 Anion Gap 11 BUN 7 Creatinine 0.83 Estimated GFR 66 L Random Glucose 115 H Calcium 8.5 Vancomycin Trough 4.8 L Microbiology 06/20/18 16:30 Blood - Peripheral Aerobic Blood Culture - Preliminary No growth in 4 days 06/20/18 16:30 Blood - Peripheral Anaerobic Blood Culture - Preliminary No growth in 4 days 06/20/18 16:35 Blood - Peripheral Aerobic Blood Culture - Preliminary No growth in 4 days 06/20/18 16:35 Blood - Peripheral Anaerobic Blood Culture - Preliminary No growth in 4 days 06/21/18 14:15 Fluid - Pleural fluid Gram Stain - Final 06/21/18 14:15 Fluid - Pleural fluid Body Fluid Culture - Final No growth in 72 hours (aerobically and anaerobically ) 06/21/18 14:15 Abscess - Chest Acid Fast Bacilli Smear - Final No acid fast bacilli seen - Imaging Impressions Chest X-Ray 06/24/18 00:00 CONCLUSION: 1. Hazy opacity in both lungs right greater than left. This appears mildly increased. 2. The right costophrenic angle now appears blunted which could indicate a small effusion. - Procedures Thoracentesis Assessment and Plan - Assessment (1) Atelectasis Code(s): J98.11 - Atelectasis Status: Acute (2) HCAP (healthcare-associated pneumonia) Code(s): J18.9 - Pneumonia, unspecified organism Status: Acute (3) Sepsis Code(s): A41.9 - Sepsis, unspecified organism Status: Acute (4) Pleural effusion Code(s): J90 - Pleural effusion, not elsewhere classified Status: Acute (5) Ovarian cancer Code(s): C56.9 - Malignant neoplasm of unspecified ovary Status: Acute (6) PNA (pneumonia) Code(s): J18.9 - Pneumonia, unspecified organism Status: Acute (7) Intractable pain Code(s): R52 - Pain, unspecified Status: Acute (8) SIRS (systemic inflammatory response syndrome) Code(s): R65.10 - Systemic inflammatory response syndrome (SIRS) of non- infectious origin without acute organ dysfunction Status: Acute - Plan 1. Will leave on O2 2 L at HS 2. D/C IV antibiotics and add PO Augmentin for 1 week 3. Nebs qid prn, Duoneb 4. Home with hospice 5. Will see as OP in 3 weeks
[2018-06-24] MEDS ORDERED: Pharmacy Ordered Lab Info OTHER ONE (14:45)
[2018-06-24 16:20] VITALS: PULSE 89
--- NOTE | 2018-06-25 12:08 | US ---
EXAM DATE: 06/21/2018 3:19 PM EST AGE/SEX: 83 years / Female INDICATIONS: Right pleural effusion. CLINICAL DATA: This is the patient's initial encounter. Patient reports that signs and symptoms have been present for 1 day and indicates a pain score of 0/10. MEDICAL/SURGICAL HISTORY: . Hypercholesterolemia. Hypertension. Stage III ovarian cancer. . Total hysterectomy. Cataract surgery. COMPARISON: No prior exams available for comparison. FLUID: Total volume of 1000 cc of bravo fluid was removed. Fluid was sent to lab for ordered studies. . . TECHNIQUE: Ultrasound guidance for thoracentesis. Thoracentesis. The risks, benefits, and alternatives to ultrasound guided thoracentesis were explained to the patien t in lay simple terms, including the risk of bleeding and infection. Written and verbal informed con sent was obtained. Appropriate area for right thoracentesis was marked under ultrasound guidance with the patient in the upright position. Overlying skin was prepped and draped in the usual sterile fashion and with local anesthetic, a dermatotomy was made with an 11 blade scalpel. A 6 [place] thoracentesis catheter was placed in the pleural space and fluid was removed. Catheter was then removed and a sterile dressing applied. There were no immediate complications. The patient tolerated the procedure well and the lef t the ultrasound suite in stable condition. Chest radiograph is to be obtained. FINDINGS: Adequate fluid for thoracentesis. CONCLUSION: 1. Uncomplicated thoracentesis. Electronically signed by: iWlfredo Leon MD 06/25/2018 12:07 PM EST
== END 2018-06-24 13:30 | disposition hospice, home (50) ==
LOC: NEPE 15:26 → NEDA 19:54 → HCIN 22:30
PROVIDERS: ADMIT Hospitalist; ATTEND Hospitalist